=== PATIENT | female | born 1990 | race Two or more races ===

== ENCOUNTER 2017-04-13 04:10 | Inpatient (IN) | payer SELFPAY ==
[2017-04-13] VITALS (10 sets, daily range): BP systolic 92–124; BP diastolic 54–78
[~2017-04-13] VITALS: Ht 157.5 cm; Wt 71.2 kg
[2017-04-13] MEDS ORDERED: OXYTOCIN 30 UNIT/500 ML PREMIX 500 ML IV PRN ×2 (04:45→08:45)
[2017-04-13] MEDS ORDERED: TERBUTALINE 1 MG/ML VIAL. SQ PRN (04:45)
[2017-04-13] MEDS ORDERED: fentaNYL PF VIAL 100 MCG/2 ML VIAL IV PRN (04:45)
[2017-04-13] MEDS ORDERED: IBUPROFEN 600 MG TABLET. PO PRN (04:45)
[2017-04-13] MEDS ORDERED: 0.9 % SODIUM CHLORIDE 10 ML DISP.SYRIN. IV PRN ×2 (04:45→08:45)
[2017-04-13] MEDS ORDERED: LIDOCAINE 1% PF 30 ML VIAL. INJ PRN (04:45)
[2017-04-13] MEDS ORDERED: BUTORPHANOL 2 MG/ML VIAL. IV PRN (04:45)
[2017-04-13 05:02] LABS: HEMATOCRIT 36.7 % (36.0-47.0); HEMOGLOBIN 12.4 g/dL (12.0-15.5); RED BLOOD COUNT 4.34 x10^6/uL (3.50-5.40); RED CELL DISTRIBUTION WIDTH 13.5 % (11.5-14.5); WHITE BLOOD COUNT 15.3 x10^3/uL (4.0-11.0)
--- NOTE | 2017-04-13 05:40 | RAD ---
INDICATION: Patient in labor with evaluation of position requested COMPARISON: None FINDINGS: Focused ultrasound images were obtained through the uterus. Placenta is fundal and right lateral. heartbeat is 160. Amniotic fluid index 7.7 Breech presentation. Please note that this is not a complete survey. IMPRESSION: The patient is in breech presentation. Electronically signed by: Jhonny Christensen (April 13, 2017 05:39:23)
[2017-04-13] MEDS: IV RINGERS,LACTATED 1000ML 1,000 ML IV SCH ×3 (05:44→20:15)
[2017-04-13] MEDS ORDERED: DEXAMETHASONE SOD PHOS 20 MG/5 ML VIAL. ONE (06:32)
[2017-04-13] MEDS ORDERED: OXYTOCIN 10 UNIT/ML VIAL. ONE ×2 (06:32→08:02)
[2017-04-13] MEDS ORDERED: PHENYLEPHRINE in 0.9% NACL PF 1 MG/10 ML DISP.SYRIN. IV ONE (06:32)
[2017-04-13] MEDS ORDERED: fentaNYL PF VIAL 100 MCG/2 ML VIAL ONE (06:32)
[2017-04-13] MEDS ORDERED: ONDANSETRON PF 4 MG/2 ML VIAL. ONE (06:32)
[2017-04-13] MEDS ORDERED: METOCLOPRAMIDE HCL 10 MG/2 ML VIAL. ONE (06:32)
[2017-04-13] MEDS ORDERED: FAMOTIDINE 20 MG/2 ML VIAL ONE (06:32)
[2017-04-13] MEDS ORDERED: MORPHINE PF 5 MG/10 ML VIAL. ONE (06:33)
[2017-04-13] MEDS ORDERED: ePHEDrine PF IN SALINE 50 MG/5 ML DISP.SYRIN IV ONE (06:33)
--- NOTE | 2017-04-13 06:59 | PDOC1 ---
OB - History Hx of Present Care: Good Care Ultrasounds: Normal mid trimester US Obstetrical Complications: None Medical Complications: None Past Family/Social History * Past Medical, Surgical, Family and Obstetric Histories reviewed from chart. Rubella: Immune RPR/VDRL: Negative GBS Status: Negative HBsAG: Negative OB - Chief Complaint & HPI Date of Admission: Date of Admission: April 13, 2017 at 04:10 Chief Complaint/History : 2 Para: 1 EGA: 38 Reason for admission: active labor, other (breech) Indication for : malpresentation Admission Nurse Assessment Rev: Yes Problems: OB - Admission Exam Physical Exam Vitals: VS - Last 72 Hours, by Label Date Time Temp Pulse Resp B/P (MAP) Pulse Ox O2 Delivery O2 Flow Rate FiO2 04/13/17 05:02 98.0 98 20 124/78 (93) Room Air 98.0 HEENT: Normal Heart: Regular Rate Lungs: Clear Abdomen: Gravid, Non tender, Soft Extremities: Edema Reflexes: Normal Cervical Dilatation: 3cm Effacement: 75% Station: -2 Membranes: Ruptured Amniotic Fluid: Clear Heart Rate: Normal Accelerations: Accelerations Present Decelerations: No decelerations Contractions on Admission: < 5 Minutes Apart Intensity: Firm Text A: 38 wks IUP SROM Breech P: ADmit for c/s. ROBERTO TOPETE Jr, MD April 13, 2017 06:58
[2017-04-13] MEDS ORDERED: CITRIC ACID/SODIUM CITRATE 30 ML SOLUTION. ONE (07:02)
[2017-04-13] MEDS ORDERED: CITRIC ACID/SODIUM CITRATE 30 ML SOLUTION. PO ONE (07:15)
[2017-04-13] MEDS ORDERED: ceFAZolin 2GM PREMIX 2 GM/50 ML BAG IV ONE (07:30)
--- NOTE | 2017-04-13 08:36 | PDOC4 ---
OB Operative Note PRE OP DIAGNOSIS: Breech POST OP DIAGNOSIS: Breech OPERATION PERFORMED: 1 LTCS (with vertical extension toward fundus) Surgeon Dr. Roy Anesthesia: Regional (Spinal) Blood Loss 800 ml Specimen placenta and OB Findings: Position (Breech), Sex (Female), (), Weight (3010 Gram) Complications none Additional Remarks pt. ROBERTO Colin Jr, MD April 13, 2017 08:36
[2017-04-13] MEDS ORDERED: ZOLPIDEM 5 MG TABLET. PO PRN (08:45)
[2017-04-13] MEDS ORDERED: ONDANSETRON PF 4 MG/2 ML VIAL. IV PRN (08:45)
[2017-04-13] MEDS ORDERED: MAG HYDROX/ALUMINUM HYD/SIMETH 30 ML ORAL.SUSP PO PRN (08:45)
[2017-04-13] MEDS ORDERED: KETOROLAC TROMETHAMINE 30 MG/ML INJ. IV PRN (08:45)
[2017-04-13] MEDS ORDERED: diphenhydrAMINE ORAL ELIXIR 12.5 MG/5 ML ML PO PRN (08:45)
[2017-04-13] MEDS ORDERED: SIMETHICONE 80 MG TAB.CHEW PO PRN (08:45)
--- NOTE | 2017-04-13 10:07 | OP ---
DATE OF SURGERY: PREOPERATIVE DIAGNOSES: Breech presentation, active labor. POSTOPERATIVE DIAGNOSES: Breech presentation, active labor. PROCEDURE: Primary low-transverse section with vertical extension toward the fundus. SURGEON: Roberto Roy MD ANESTHESIA: Epidural. ESTIMATED BLOOD LOSS: 800 mL. COMPLICATIONS: None. FINDINGS: Viable female infant in footling breech presentation requiring section. Apgars of 1, 8, and 9, weight 3,010 grams. Three-vessel cord. Placenta delivered manually intact. SUMMARY: A 26-year-old 2, para 1 at 38 weeks, who presented in active labor. She was found to be in breech presentation. She also had spontaneous rupture of membranes with thin meconium fluid. The patient was prepped for section. DESCRIPTION OF PROCEDURE: The patient was taken to the surgery suite and placed in dorsal supine position where she was prepped with ChloraPrep and draped in the sterile fashion. After adequate anesthesia, a Pfannenstiel skin incision was made with scalpel down to and through the fascia. Fascia was extended laterally using curved Bueno scissors. The superior edge of the fascia was grasped with two Herrera clamps and dissected free of the abdominal rectus muscles using blunt dissection along with Bovie cautery. The same process took place inferiorly. The peritoneum was grasped with 2 hemostats and entered sharply with Metzenbaum scissors. This incision was extended superiorly as well as inferiorly. The Alfred ring retractor was placed. A low-transverse hysterotomy incision was made with scalpel down to the . The hysterotomy incision was extended laterally and superiorly digitally. It was found that the was footling breech at this point. An extension was made with bandage scissors to the midline of the uterus in a vertical direction. A ____ from the nursing staff was placed vaginally to push up on the leg ____ in order to flex the right leg, which was then delivered. The left leg was then flexed and delivered. With fundal pressure, the infant was delivered down to the subscapular region. The right arm was then flexed and delivered. The infant was rotated 180 degrees. The left arm was flexed and delivered, and with additional fundal pressure, the head was delivered. was suctioned with bulb syringe orally and nasally. The umbilical cord was clamped twice and cut. A viable female infant was handed to the awaiting nursing staff. Umbilical cord blood and arterial pH were obtained. The uterus was exteriorized and placenta was removed under manual extraction intact. Vertical extension was repaired in 2 layers using 1-0 Vicryl suture in a running locking fashion. The hysterotomy incision was repaired with 1-0 Vicryl suture in a running locking fashion. [id number] sutures placed in the right apex of the hysterotomy incision for better hemostasis. The uterine incision was hemostatic. Uterus palpated firm. Fallopian tubes and ovaries appeared normal bilaterally. Posterior cul-de-sac was cleared of clot and debris with moist lap. The uterus was then returned to the abdomen. The paracolic gutters were cleared of clot and debris with a moist lap. Hysterotomy incision was reviewed and was hemostatic. Interceed was placed over the hysterotomy incision in an inverted T fashion. The Alfred ring retractor was removed. The peritoneum was re-approximated using 1-0 Vicryl suture in running fashion. Fascia was re-approximated using 0 Vicryl suture in a running fashion. Skin was re-approximated using 4-0 Vicryl suture in subcuticular manner. The patient tolerated the procedure well and was taken to the recovery room in stable condition. Sponge and needle counts were correct x 3. ROBERTO ROY MD DR: MORAIMA/jose JOB#: [id number] / [id number]
[2017-04-13] MEDS: KETOROLAC TROMETHAMINE 30 MG/ML INJ. IV PRN ×2 (10:36→22:01)
[2017-04-13] MEDS: FERROUS SULFATE 325 MG TABLET. PO SCH (16:10)
[2017-04-13] MEDS: oxyCODONE/APAP 5/325 1 TAB TABLET PO PRN (18:05)
[2017-04-13] MEDS: DOCUSATE SODIUM 100 MG CAPSULE. PO PRN (22:00)
[2017-04-14 00:45] VITALS: BP 89/59
[2017-04-14] MEDS: IBUPROFEN 800 MG TABLET. PO PRN ×3 (03:08→22:41)
[2017-04-14 04:38] LABS: BASO % 0 % (0-3); EOS % 0 % (0-3); HEMATOCRIT 28.2 % (36.0-47.0); HEMOGLOBIN 9.6 g/dL (12.0-15.5); LYMPH # 2.2 x10^3/uL (1.0-4.8); LYMPH % 10 % (24-48); MEAN CORPUSCULAR HEMOGLOBIN 29 pg (25-35); MEAN CORPUSCULAR HGB CONC 34 g/dL (31-37); MEAN CORPUSCULAR VOLUME 85 fL (79-100); MONO % 7 % (0-9); NEUT % 82 % (31-73); PLATELET COUNT 230 x10^3/uL (140-400); RED BLOOD COUNT 3.31 x10^6/uL (3.50-5.40); RED CELL DISTRIBUTION WIDTH 13.9 % (11.5-14.5)
[2017-04-14 06:33] VITALS: BP 106/73
[2017-04-14] MEDS: oxyCODONE/APAP 5/325 1 TAB TABLET PO PRN ×4 (07:15→21:06)
[2017-04-14] MEDS: DOCUSATE SODIUM 100 MG CAPSULE. PO PRN ×2 (07:15→21:06)
[2017-04-14] MEDS: FERROUS SULFATE 325 MG TABLET. PO SCH ×2 (07:15→17:16)
[2017-04-14 09:09] LABS: PLT ESTIMATE ADEQUATE (ADEQUATE)
[2017-04-14 10:42] VITALS: BP 98/68
[2017-04-14 10:43] VITALS: BP_SYST 98
--- NOTE | 2017-04-14 13:11 | PDOC ---
OB Progress Note Date of Service 04/14/17 Time of Evaluation 1310 Notes Pt. feeling well. Pain controlled. Breast feeding. Lochia minimal. Lab Laboratory Tests Test 04/13/17 04:37 04/14/17 03:15 White Blood Count 15.3 x10^3/uL (4.0-11.0) 21.0 x10^3/uL (4.0-11.0) Red Blood Count 4.34 x10^6/uL (3.50-5.40) 3.31 x10^6/uL (3.50-5.40) Hemoglobin 12.4 g/dL (12.0-15.5) 9.6 g/dL (12.0-15.5) Hematocrit 36.7 % (36.0-47.0) 28.2 % (36.0-47.0) Mean Corpuscular Volume 85 fL (79-100) 85 fL (79-100) Mean Corpuscular Hemoglobin 29 pg (25-35) 29 pg (25-35) Mean Corpuscular Hemoglobin Concent 34 g/dL (31-37) 34 g/dL (31-37) Red Cell Distribution Width 13.5 % (11.5-14.5) 13.9 % (11.5-14.5) Platelet Count 279 x10^3/uL (140-400) 230 x10^3/uL (140-400) Neutrophils (%) (Auto) 82 % (31-73) Lymphocytes (%) (Auto) 10 % (24-48) Monocytes (%) (Auto) 7 % (0-9) Eosinophils (%) (Auto) 0 % (0-3) Basophils (%) (Auto) 0 % (0-3) Neutrophils # (Auto) 17.3 x10^3uL (1.8-7.7) Lymphocytes # (Auto) 2.2 x10^3/uL (1.0-4.8) Monocytes # (Auto) 1.5 x10^3/uL (0.0-1.1) Eosinophils # (Auto) 0.0 x10^3/uL (0.0-0.7) Basophils # (Auto) 0.0 x10^3/uL (0.0-0.2) Segmented Neutrophils % 84 % (35-66) Band Neutrophils % 6 % (0-9) Lymphocytes % 6 % (24-48) Monocytes % 4 % (0-10) Platelet Estimate Adequate (ADEQUATE) Laboratory Tests Test 04/14/17 03:15 White Blood Count 21.0 x10^3/uL (4.0-11.0) Red Blood Count 3.31 x10^6/uL (3.50-5.40) Hemoglobin 9.6 g/dL (12.0-15.5) Hematocrit 28.2 % (36.0-47.0) Mean Corpuscular Volume 85 fL (79-100) Mean Corpuscular Hemoglobin 29 pg (25-35) Mean Corpuscular Hemoglobin Concent 34 g/dL (31-37) Red Cell Distribution Width 13.9 % (11.5-14.5) Platelet Count 230 x10^3/uL (140-400) Neutrophils (%) (Auto) 82 % (31-73) Lymphocytes (%) (Auto) 10 % (24-48) Monocytes (%) (Auto) 7 % (0-9) Eosinophils (%) (Auto) 0 % (0-3) Basophils (%) (Auto) 0 % (0-3) Neutrophils # (Auto) 17.3 x10^3uL (1.8-7.7) Lymphocytes # (Auto) 2.2 x10^3/uL (1.0-4.8) Monocytes # (Auto) 1.5 x10^3/uL (0.0-1.1) Eosinophils # (Auto) 0.0 x10^3/uL (0.0-0.7) Basophils # (Auto) 0.0 x10^3/uL (0.0-0.2) Segmented Neutrophils % 84 % (35-66) Band Neutrophils % 6 % (0-9) Lymphocytes % 6 % (24-48) Monocytes % 4 % (0-10) Platelet Estimate Adequate (ADEQUATE) Medications Current Medications Sodium Chloride (Normal Saline Flush) 3 ml QSHIFT PRN IV AFTER MEDS AND BLOOD DRAWS; Start 04/13/17 at 04:45 Ringer's Solution 1,000 ml @ 125 mls/hr Q8H IV Last administered on 04/13/17t 20:15; Start 04/13/17 at 04:37 Butorphanol Tartrate (Stadol) 2 mg PRN Q1HR PRN IV Severe labor pain; Start at 04:45 Fentanyl Citrate (Fentanyl 2ml Vial) 100 mcg PRN Q30MIN PRN IV Severe pain; Start 04/13/17 at 04:45 Terbutaline Sulfate (Brethine) 0.25 mg 1X PRN PRN SQ SEE COMMENTS; Start at 04:45; Stop 04/14/17 at 04:44; Status DC Lidocaine HCl 30 ml 1X PRN PRN INJ SEE COMMENTS; Start 04/13/17 at 04:45; Stop 04/13/17 at 16:25; Status DC Oxytocin/Sodium Chloride 500 ml @ 0 mls/hr CONT PRN PRN IV Post delivery bleeding; Start 04/13/17 at 04:45 Ibuprofen (Motrin) 600 mg PRN Q6HRS PRN PO PAIN; Start 04/13/17 at 04:45 Dexamethasone Sodium Phosphate (Decadron) 20 mg STK-MED ONCE .ROUTE ; Start at 06:32; Stop 04/13/17 at 16:25; Status DC Famotidine (Pepcid) 20 mg STK-MED ONCE .ROUTE ; Start 04/13/17 at 06:32; Stop at 16:25; Status DC Metoclopramide HCl (Reglan) 10 mg STK-MED ONCE .ROUTE ; Start 04/13/17 at 06:32 ; Stop 04/13/17 at 16:25; Status DC Ondansetron HCl (Zofran) 4 mg STK-MED ONCE .ROUTE ; Start 04/13/17 at 06:32; Stop 04/13/17 at 16:25; Status DC Phenylephrine HCl 1 mg STK-MED ONCE IV ; Start 04/13/17 at 06:32; Stop 04/13/17 at 16:25; Status DC Fentanyl Citrate (Fentanyl 2ml Vial) 100 mcg STK-MED ONCE .ROUTE ; Start at 06:32; Stop 04/13/17 at 16:25; Status DC Oxytocin (Pitocin) 10 unit STK-MED ONCE .ROUTE ; Start 04/13/17 at 06:32; Stop 04/13/17 at 16:25; Status DC Ephedrine Sulfate 50 mg STK-MED ONCE IV ; Start 04/13/17 at 06:33; Stop at 16:25; Status DC Morphine Sulfate (Morphine Preservative Free) 5 mg STK-MED ONCE .ROUTE ; Start 04/13/17 at 06:33; Stop 04/13/17 at 16:25; Status DC Ketorolac Tromethamine (Toradol) 30 mg PRN Q6HRS PRN IV PAIN Last administered on 04/13/17 22:01; Start 04/13/17 at 07:00; Stop 04/18/17 at 06:59 Citric Acid/ Sodium Citrate (Bicitra) 30 ml STK-MED ONCE .ROUTE ; Start at 07:02; Stop 04/13/17 at 16:25; Status DC Cefazolin Sodium/ Dextrose 50 ml @ 100 mls/hr 1X ONCE IV ; Start 04/13/17 at 07:00; Stop 04/13/17 at 16:25; Status DC Citric Acid/ Sodium Citrate (Bicitra) 30 ml 1X ONCE PO Last administered on 07:13; Start 04/13/17 at 07:15; Stop 04/13/17 at 16:25; Status DC Oxytocin (Pitocin) 10 unit STK-MED ONCE .ROUTE ; Start 04/13/17 at 08:02; Stop 04/13/17 at 16:25; Status DC Sodium Chloride (Normal Saline Flush) 3 ml QSHIFT PRN IV AFTER MEDS AND BLOOD DRAWS; Start 04/13/17 at 08:45 Oxytocin/Sodium Chloride 500 ml @ 125 mls/hr CONT PRN IV EXCESSIVE POST- BLEEDING; Start 04/13/17 at 08:45; Stop 04/13/17 at 16:44; Status DC Ibuprofen (Motrin) 800 mg PRN Q8HRS PRN PO INFLAMMATION Last administered on 11:27; Start 04/13/17 at 08:45 Ondansetron HCl (Zofran) 4 mg PRN Q6HRS PRN IV NAUSEA/VOMITING; Start 04/13/17 at 08:45 Docusate Sodium (Colace) 100 mg PRN BID PRN PO CONSTIPATION Last administered on 04/14/17 07:15; Start 04/13/17 at 08:45 Al Hydroxide/Mg Hydroxide (Mylanta Plus Xs) 30 ml PRN Q4HRS PRN PO HEARTBURN / GAS; Start 04/13/17 at 08:45 Simethicone (Gas-X) 80 mg PRN AFTMEALHC PRN PO GAS / BLOATING; Start 04/13/17 at 08:45 Diphenhydramine HCl (Benadryl Oral Elixir) 12.5 mg PRN Q6HRS PRN PO ITCHING; Start 04/13/17 at 08:45 Ferrous Sulfate (Feosol) 325 mg BIDWMEALS PO Last administered on 04/14/17 07: 15; Start 04/13/17 at 17:00 Zolpidem Tartrate (Ambien) 5 mg PRN QHS PRN PO INSOMNIA, MAY REPEAT X1; Start 04/13/17 at 08:45 Oxycodone/ Acetaminophen (Percocet 5/325) 2 tab PRN Q4HRS PRN PO MODERATE PAIN , SEVERE PAIN Last administered on 04/14/17 11:29; Start 04/13/17 at 08:45 Ketorolac Tromethamine (Toradol) 30 mg PRN Q6HRS PRN IV PAIN Last administered on 04/13/17 16:00; Start 04/13/17 at 08:45; Stop 04/18/17 at 08:44 Exam Abd: soft,non tender, fundus firm INcision site: clean, dry and intact Assessment POD#1 s/p c/s Plan of Care: Continue current Tx, Mgmt ROBERTO TOPETE Jr, MD April 14, 2017 13:11
[2017-04-14 18:35] VITALS: BP 101/72
[2017-04-14 23:08] LABS: RPR REFLEX Non Reactive (Non Reactive)
[2017-04-14 23:20] VITALS: BP 105/64
[2017-04-15] MEDS: oxyCODONE/APAP 5/325 1 TAB TABLET PO PRN ×4 (01:45→21:05)
[2017-04-15 06:30] VITALS: BP 96/65
[2017-04-15] MEDS: DOCUSATE SODIUM 100 MG CAPSULE. PO PRN ×2 (08:04→21:05)
[2017-04-15] MEDS: FERROUS SULFATE 325 MG TABLET. PO SCH ×2 (08:04→15:58)
[2017-04-15] MEDS: IBUPROFEN 800 MG TABLET. PO PRN ×2 (08:04→19:32)
[2017-04-15 11:20] VITALS: BP 102/66
[2017-04-15 15:15] VITALS: BP 106/66
--- NOTE | 2017-04-15 17:28 | PDOC ---
OB Progress Note Date of Service 04/15/17 Time of Evaluation 1725 Notes Pt. feeling well. No complaints. Lab Laboratory Tests Test 04/14/17 03:15 White Blood Count 21.0 x10^3/uL (4.0-11.0) Red Blood Count 3.31 x10^6/uL (3.50-5.40) Hemoglobin 9.6 g/dL (12.0-15.5) Hematocrit 28.2 % (36.0-47.0) Mean Corpuscular Volume 85 fL (79-100) Mean Corpuscular Hemoglobin 29 pg (25-35) Mean Corpuscular Hemoglobin Concent 34 g/dL (31-37) Red Cell Distribution Width 13.9 % (11.5-14.5) Platelet Count 230 x10^3/uL (140-400) Neutrophils (%) (Auto) 82 % (31-73) Lymphocytes (%) (Auto) 10 % (24-48) Monocytes (%) (Auto) 7 % (0-9) Eosinophils (%) (Auto) 0 % (0-3) Basophils (%) (Auto) 0 % (0-3) Neutrophils # (Auto) 17.3 x10^3uL (1.8-7.7) Lymphocytes # (Auto) 2.2 x10^3/uL (1.0-4.8) Monocytes # (Auto) 1.5 x10^3/uL (0.0-1.1) Eosinophils # (Auto) 0.0 x10^3/uL (0.0-0.7) Basophils # (Auto) 0.0 x10^3/uL (0.0-0.2) Segmented Neutrophils % 84 % (35-66) Band Neutrophils % 6 % (0-9) Lymphocytes % 6 % (24-48) Monocytes % 4 % (0-10) Platelet Estimate Adequate (ADEQUATE) Medications Current Medications Sodium Chloride (Normal Saline Flush) 3 ml QSHIFT PRN IV AFTER MEDS AND BLOOD DRAWS; Start 04/13/17 at 04:45; Stop 04/14/17 at 17:14; Status DC Ringer's Solution 1,000 ml @ 125 mls/hr Q8H IV Last administered on 04/13/17t 20:15; Start 04/13/17 at 04:37; Stop 04/14/17 at 17:14; Status DC Butorphanol Tartrate (Stadol) 2 mg PRN Q1HR PRN IV Severe labor pain; Start at 04:45; Stop 04/14/17 at 17:14; Status DC Fentanyl Citrate (Fentanyl 2ml Vial) 100 mcg PRN Q30MIN PRN IV Severe pain; Start 04/13/17 at 04:45; Stop 04/14/17 at 17:14; Status DC Terbutaline Sulfate (Brethine) 0.25 mg 1X PRN PRN SQ SEE COMMENTS; Start at 04:45; Stop 04/14/17 at 04:44; Status DC Lidocaine HCl 30 ml 1X PRN PRN INJ SEE COMMENTS; Start 04/13/17 at 04:45; Stop 04/13/17 at 16:25; Status DC Oxytocin/Sodium Chloride 500 ml @ 0 mls/hr CONT PRN PRN IV Post delivery bleeding; Start 04/13/17 at 04:45; Stop 04/14/17 at 17:14; Status DC Ibuprofen (Motrin) 600 mg PRN Q6HRS PRN PO PAIN; Start 04/13/17 at 04:45; Stop 04/15/17 at 13:48; Status DC Dexamethasone Sodium Phosphate (Decadron) 20 mg STK-MED ONCE .ROUTE ; Start at 06:32; Stop 04/13/17 at 16:25; Status DC Famotidine (Pepcid) 20 mg STK-MED ONCE .ROUTE ; Start 04/13/17 at 06:32; Stop at 16:25; Status DC Metoclopramide HCl (Reglan) 10 mg STK-MED ONCE .ROUTE ; Start 04/13/17 at 06:32 ; Stop 04/13/17 at 16:25; Status DC Ondansetron HCl (Zofran) 4 mg STK-MED ONCE .ROUTE ; Start 04/13/17 at 06:32; Stop 04/13/17 at 16:25; Status DC Phenylephrine HCl 1 mg STK-MED ONCE IV ; Start 04/13/17 at 06:32; Stop 04/13/17 at 16:25; Status DC Fentanyl Citrate (Fentanyl 2ml Vial) 100 mcg STK-MED ONCE .ROUTE ; Start at 06:32; Stop 04/13/17 at 16:25; Status DC Oxytocin (Pitocin) 10 unit STK-MED ONCE .ROUTE ; Start 04/13/17 at 06:32; Stop 04/13/17 at 16:25; Status DC Ephedrine Sulfate 50 mg STK-MED ONCE IV ; Start 04/13/17 at 06:33; Stop at 16:25; Status DC Morphine Sulfate (Morphine Preservative Free) 5 mg STK-MED ONCE .ROUTE ; Start 04/13/17 at 06:33; Stop 04/13/17 at 16:25; Status DC Ketorolac Tromethamine (Toradol) 30 mg PRN Q6HRS PRN IV PAIN Last administered on 04/13/17 22:01; Start 04/13/17 at 07:00; Stop 04/14/17 at 17:14; Status DC Citric Acid/ Sodium Citrate (Bicitra) 30 ml STK-MED ONCE .ROUTE ; Start at 07:02; Stop 04/13/17 at 16:25; Status DC Cefazolin Sodium/ Dextrose 50 ml @ 100 mls/hr 1X ONCE IV ; Start 04/13/17 at 07:00; Stop 04/13/17 at 16:25; Status DC Citric Acid/ Sodium Citrate (Bicitra) 30 ml 1X ONCE PO Last administered on 07:13; Start 04/13/17 at 07:15; Stop 04/13/17 at 16:25; Status DC Oxytocin (Pitocin) 10 unit STK-MED ONCE .ROUTE ; Start 04/13/17 at 08:02; Stop 04/13/17 at 16:25; Status DC Sodium Chloride (Normal Saline Flush) 3 ml QSHIFT PRN IV AFTER MEDS AND BLOOD DRAWS; Start 04/13/17 at 08:45; Stop 04/14/17 at 17:14; Status DC Oxytocin/Sodium Chloride 500 ml @ 125 mls/hr CONT PRN IV EXCESSIVE POST- BLEEDING; Start 04/13/17 at 08:45; Stop 04/13/17 at 16:44; Status DC Ibuprofen (Motrin) 800 mg PRN Q8HRS PRN PO INFLAMMATION Last administered on 08:04; Start 04/13/17 at 08:45 Ondansetron HCl (Zofran) 4 mg PRN Q6HRS PRN IV NAUSEA/VOMITING; Start 04/13/17 at 08:45; Stop 04/14/17 at 17:14; Status DC Docusate Sodium (Colace) 100 mg PRN BID PRN PO CONSTIPATION Last administered on 04/15/17 08:04; Start 04/13/17 at 08:45 Al Hydroxide/Mg Hydroxide (Mylanta Plus Xs) 30 ml PRN Q4HRS PRN PO HEARTBURN / GAS; Start 04/13/17 at 08:45 Simethicone (Gas-X) 80 mg PRN AFTMEALHC PRN PO GAS / BLOATING Last administered on 04/14/17 17:16; Start 04/13/17 at 08:45 Diphenhydramine HCl (Benadryl Oral Elixir) 12.5 mg PRN Q6HRS PRN PO ITCHING; Start 04/13/17 at 08:45 Ferrous Sulfate (Feosol) 325 mg BIDWMEALS PO Last administered on 04/15/17 15: 58; Start 04/13/17 at 17:00 Zolpidem Tartrate (Ambien) 5 mg PRN QHS PRN PO INSOMNIA, MARCH REPEAT X1; Start 04/13/17 at 08:45 Oxycodone/ Acetaminophen (Percocet 5/325) 2 tab PRN Q4HRS PRN PO MODERATE PAIN , SEVERE PAIN Last administered on 04/15/17 15:59; Start 04/13/17 at 08:45 Ketorolac Tromethamine (Toradol) 30 mg PRN Q6HRS PRN IV PAIN Last administered on 04/13/17 16:00; Start 04/13/17 at 08:45; Stop 04/14/17 at 17:14; Status DC Cefazolin Sodium/ Dextrose (Ancef 2gm Premix) 2 gm STK-MED ONCE IV ; Start 04/13 at 07:30; Stop 04/15/17 at 07:58; Status DC Exam Abd: soft, non tender Incision site: clean, dry and intact Assessment POD#2 s/p c/s Plan of Care: Continue current Tx, Mgmt ROBERTO TOPETE Jr, MD April 15, 2017 17:28
[2017-04-15 23:02] VITALS: BP 113/71
[2017-04-16] MEDS: IBUPROFEN 800 MG TABLET. PO PRN (05:12)
[2017-04-16 05:53] VITALS: BP 125/83
--- NOTE | 2017-04-16 08:38 | PDOC ---
OB Progress Note Date of Service 04/16/17 Time of Evaluation 0835 Notes Pt. feeling well. No complaints. Medications Current Medications Sodium Chloride (Normal Saline Flush) 3 ml QSHIFT PRN IV AFTER MEDS AND BLOOD DRAWS; Start 04/13/17 at 04:45; Stop 04/14/17 at 17:14; Status DC Ringer's Solution 1,000 ml @ 125 mls/hr Q8H IV Last administered on 04/13/17t 20:15; Start 04/13/17 at 04:37; Stop 04/14/17 at 17:14; Status DC Butorphanol Tartrate (Stadol) 2 mg PRN Q1HR PRN IV Severe labor pain; Start at 04:45; Stop 04/14/17 at 17:14; Status DC Fentanyl Citrate (Fentanyl 2ml Vial) 100 mcg PRN Q30MIN PRN IV Severe pain; Start 04/13/17 at 04:45; Stop 04/14/17 at 17:14; Status DC Terbutaline Sulfate (Brethine) 0.25 mg 1X PRN PRN SQ SEE COMMENTS; Start at 04:45; Stop 04/14/17 at 04:44; Status DC Lidocaine HCl 30 ml 1X PRN PRN INJ SEE COMMENTS; Start 04/13/17 at 04:45; Stop 04/13/17 at 16:25; Status DC Oxytocin/Sodium Chloride 500 ml @ 0 mls/hr CONT PRN PRN IV Post delivery bleeding; Start 04/13/17 at 04:45; Stop 04/14/17 at 17:14; Status DC Ibuprofen (Motrin) 600 mg PRN Q6HRS PRN PO PAIN; Start 04/13/17 at 04:45; Stop 04/15/17 at 13:48; Status DC Dexamethasone Sodium Phosphate (Decadron) 20 mg STK-MED ONCE .ROUTE ; Start at 06:32; Stop 04/13/17 at 16:25; Status DC Famotidine (Pepcid) 20 mg STK-MED ONCE .ROUTE ; Start 04/13/17 at 06:32; Stop at 16:25; Status DC Metoclopramide HCl (Reglan) 10 mg STK-MED ONCE .ROUTE ; Start 04/13/17 at 06:32 ; Stop 04/13/17 at 16:25; Status DC Ondansetron HCl (Zofran) 4 mg STK-MED ONCE .ROUTE ; Start 04/13/17 at 06:32; Stop 04/13/17 at 16:25; Status DC Phenylephrine HCl 1 mg STK-MED ONCE IV ; Start 04/13/17 at 06:32; Stop 04/13/17 at 16:25; Status DC Fentanyl Citrate (Fentanyl 2ml Vial) 100 mcg STK-MED ONCE .ROUTE ; Start at 06:32; Stop 04/13/17 at 16:25; Status DC Oxytocin (Pitocin) 10 unit STK-MED ONCE .ROUTE ; Start 04/13/17 at 06:32; Stop 04/13/17 at 16:25; Status DC Ephedrine Sulfate 50 mg STK-MED ONCE IV ; Start 04/13/17 at 06:33; Stop at 16:25; Status DC Morphine Sulfate (Morphine Preservative Free) 5 mg STK-MED ONCE .ROUTE ; Start 04/13/17 at 06:33; Stop 04/13/17 at 16:25; Status DC Ketorolac Tromethamine (Toradol) 30 mg PRN Q6HRS PRN IV PAIN Last administered on 04/13/17t 22:01; Start 04/13/17 at 07:00; Stop 04/14/17 at 17:14; Status DC Citric Acid/ Sodium Citrate (Bicitra) 30 ml STK-MED ONCE .ROUTE ; Start at 07:02; Stop 04/13/17 at 16:25; Status DC Cefazolin Sodium/ Dextrose 50 ml @ 100 mls/hr 1X ONCE IV ; Start 04/13/17 at 07:00; Stop 04/13/17 at 16:25; Status DC Citric Acid/ Sodium Citrate (Bicitra) 30 ml 1X ONCE PO Last administered on t 07:13; Start 04/13/17 at 07:15; Stop 04/13/17 at 16:25; Status DC Oxytocin (Pitocin) 10 unit STK-MED ONCE .ROUTE ; Start 04/13/17 at 08:02; Stop 04/13/17 at 16:25; Status DC Sodium Chloride (Normal Saline Flush) 3 ml QSHIFT PRN IV AFTER MEDS AND BLOOD DRAWS; Start 04/13/17 at 08:45; Stop 04/14/17 at 17:14; Status DC Oxytocin/Sodium Chloride 500 ml @ 125 mls/hr CONT PRN IV EXCESSIVE POST- BLEEDING; Start 04/13/17 at 08:45; Stop 04/13/17 at 16:44; Status DC Ibuprofen (Motrin) 800 mg PRN Q8HRS PRN PO INFLAMMATION Last administered on 05:12; Start 04/13/17 at 08:45 Ondansetron HCl (Zofran) 4 mg PRN Q6HRS PRN IV NAUSEA/VOMITING; Start 04/13/17 at 08:45; Stop 04/14/17 at 17:14; Status DC Docusate Sodium (Colace) 100 mg PRN BID PRN PO CONSTIPATION Last administered on 04/15/17 21:05; Start 04/13/17 at 08:45 Al Hydroxide/Mg Hydroxide (Mylanta Plus Xs) 30 ml PRN Q4HRS PRN PO HEARTBURN / GAS; Start 04/13/17 at 08:45 Simethicone (Gas-X) 80 mg PRN AFTMEALHC PRN PO GAS / BLOATING Last administered on 04/14/17 17:16; Start 04/13/17 at 08:45 Diphenhydramine HCl (Benadryl Oral Elixir) 12.5 mg PRN Q6HRS PRN PO ITCHING; Start 04/13/17 at 08:45 Ferrous Sulfate (Feosol) 325 mg BIDWMEALS PO Last administered on 04/15/17 15: 58; Start 04/13/17 at 17:00 Zolpidem Tartrate (Ambien) 5 mg PRN QHS PRN PO INSOMNIA, MAY REPEAT X1; Start 04/13/17 at 08:45 Oxycodone/ Acetaminophen (Percocet 5/325) 2 tab PRN Q4HRS PRN PO MODERATE PAIN , SEVERE PAIN Last administered on 04/15/17 21:05; Start 04/13/17 at 08:45 Ketorolac Tromethamine (Toradol) 30 mg PRN Q6HRS PRN IV PAIN Last administered on 5/20/17at 16:00; Start 04/13/17 at 08:45; Stop 04/14/17 at 17:14; Status DC Cefazolin Sodium/ Dextrose (Ancef 2gm Premix) 2 gm STK-MED ONCE IV ; Start 04/13 at 07:30; Stop 04/15/17 at 07:58; Status DC Exam Abd: soft, non tender, fundus firm Incision site: clean, dry and intact Assessment POD#3 s/p c/s Plan of Care: See new orders (D/c home.) ROBERTO TOPETE Jr, MD April 16, 2017 08:38
--- NOTE | 2017-04-16 08:39 | DISCH ---
DISCHARGE INSTRUCTIONS Condition on Discharge Condition on Discharge: Stable Activity After Discharge Activity Instructions for Disc: Activity as tolerated Lifting Instructions after Dis: No heavy lifting Driving Instructions after Dis: Do not drive today Diet after Discharge Diet after Discharge: Regular Contacting the DRKatheryn after DC Call your doctor for: Concerns you may have Follow-Up Follow up with: Viri in 2 weeks. ROBERTO TOPETE Jr, MD April 16, 2017 08:39
[2017-04-16] MEDS ORDERED: DOCU-27 PO (08:40)
[2017-04-16] MEDS ORDERED: IBUP-1060 PO (08:40)
[2017-04-16] MEDS ORDERED: OXYC-323 PO (08:40)
[2017-04-16] MEDS: FERROUS SULFATE 325 MG TABLET. PO SCH (08:56)
[2017-04-16] MEDS: DOCUSATE SODIUM 100 MG CAPSULE. PO PRN (08:56)
[2017-04-16] MEDS: oxyCODONE/APAP 5/325 1 TAB TABLET PO PRN (08:57)
[2017-04-16] MEDS ORDERED: BISACODYL 10 MG SUPP.RECT. PR ONE (09:30)
[2017-04-16 12:00] VITALS: BP 109/77
== END 2017-04-16 13:00 | disposition home or self-care (01) | DRG 765 ==
LOC: OBSVTOIN 04:10 → 3 SO LND 04:10 → 3 NORTH 11:01
PROVIDERS: ADMIT Obstetrics & Gynecology; ATTEND Obstetrics & Gynecology
PROC: 10D00Z1 Extraction of Products of Conception, Low, Open Approach (ICD-10-PCS; principal; 2017-04-13)
DX: O32.8XX0 Maternal care for other malpresentation of fetus, not applicable or unspecified (principal); D62 Acute posthemorrhagic anemia; O77.0 Labor and delivery complicated by meconium in amniotic fluid; Z37.0 Single live birth; Z3A.38 38 weeks gestation of pregnancy; O99.02 Anemia complicating childbirth
CPT/HCPCS: 36415; 76815; 85007; 85027; 86593; 86850; 86900; 86901; G0378; J0690; J1100; J1885; J2270; J2370; J2405; J2590; J2765; J3010; J7120; S0028

== ENCOUNTER 2019-09-07 20:57 | Inpatient (IN) | payer SELFPAY ==
[~2019-09-07] VITALS: Ht 160 cm; Wt 60.4 kg
[~2019-09-07 20:57] MED LIST: DOCU-109 PO; IBUP-1060 PO; OXYC1TAB15 PO
[2019-09-07] MEDS ORDERED: fentaNYL PF VIAL 100 MCG/2 ML VIAL IV PRN (21:45)
--- NOTE | 2019-09-07 21:49 | PHYS DOC ---
Past Medical History Past Medical History: No Pertinent History Past Surgical History: Appendectomy Alcohol Use: Occasionally Drug Use: None Adult General Chief Complaint Chief Complaint: BREAST PROBLEM HPI HPI Patient is a 29-year-old female who presents with report of pain, swelling and redness to her left breast for the last few days. She indicates that pain and swelling have progressively gotten worse and currently she rates pain at an 8 out of 10. She does not believe that she's been running a fever. She denies any nausea or vomiting. Patient states that pain is worsened with palpation to the breast.[] Review of Systems Review of Systems Constitutional: Denies fever or chills [] Respiratory: Denies cough or shortness of breath [] Cardiovascular: No additional information not addressed in HPI [] GI: Denies abdominal pain, nausea, vomiting or diarrhea [] Integument: Positive redness, swelling and warmth with tenderness to the left breast extending from areola, laterally[] Neurologic: Denies headache, focal weakness or sensory changes [] All other systems were reviewed and found to be within normal limits, except as documented in this note. Current Medications Current Medications Current Medications Medications (Trade) Dose Ordered Sig/Seven Start Time Stop Time Status Last Admin Dose Admin Cefazolin Sodium/ Dextrose 50 ml @ 100 mls/hr 1X ONCE 09/07/19 22:30 09/07/19 22:59 DC 09/07/19 22:47 100 MLS/HR Fentanyl Citrate (Fentanyl 2ml Vial) 25 mcg PRN Q15MIN PRN 09/07/19 21:45 09/08/19 21:44 09/07/19 22:48 25 MCG Hydromorphone HCl (Dilaudid) 0.5 mg 1X ONCE 09/08/19 00:30 09/08/19 00:31 Ondansetron HCl (Zofran) 4 mg 1X ONCE 09/07/19 22:00 09/07/19 22:01 DC 09/07/19 22:48 4 MG Sodium Chloride 1,000 ml @ 1,000 mls/hr Q1H 09/07/19 22:00 09/07/19 22:59 DC 09/07/19 22:46 1,000 MLS/HR Allergies Allergies Allergies Coded Allergies Type Severity Reaction Last Updated Verified No Known Drug Allergies 10/04/14 No Physical Exam Physical Exam Constitutional: Well developed, well nourished, no acute distress, non-toxic appearance. [] HENT: Normocephalic, atraumatic, bilateral external ears normal, oropharynx moist, no oral exudates, nose normal. [] Eyes: PERRLA, EOMI, conjunctiva normal, no discharge. [] Neck: Normal range of motion, no tenderness, supple, no stridor. [] Cardiovascular: Tachycardic rate with regular rhythm[] Lungs & Thorax: Bilateral breath sounds clear to auscultation [] Abdomen: Bowel sounds normal, soft, no tenderness. [] Skin: Examination of left breast performed with nurse poultry farmer meat present. There is moderate soft tissue swelling with erythema and warmth, primarily overlying the areola but extending laterally. [] Extremities: No tenderness, no cyanosis, no clubbing, ROM intact, no edema. [] Neurologic: Alert and oriented X 3, no focal deficits noted. [] Current Patient Data Vital Signs Vital Signs Date Time Temp Pulse Resp B/P (MAP) Pulse Ox O2 Delivery O2 Flow Rate FiO2 09/07/19 22:48 16 100 Room Air 09/07/19 21:25 98.7 107 146/71 (96) 98.7 Lab Values Laboratory Tests Test 09/07/19 22:20 09/07/19 23:22 09/07/19 23:25 White Blood Count 12.7 x10^3/uL (4.0-11.0) H Red Blood Count 4.70 x10^6/uL (3.50-5.40) Hemoglobin 14.1 g/dL (12.0-15.5) Hematocrit 41.6 % (36.0-47.0) Mean Corpuscular Volume 88 fL (79-100) Mean Corpuscular Hemoglobin 30 pg (25-35) Mean Corpuscular Hemoglobin Concent 34 g/dL (31-37) Red Cell Distribution Width 12.8 % (11.5-14.5) Platelet Count 251 x10^3/uL (140-400) Neutrophils (%) (Auto) 73 % (31-73) Lymphocytes (%) (Auto) 19 % (24-48) L Monocytes (%) (Auto) 7 % (0-9) Eosinophils (%) (Auto) 0 % (0-3) Basophils (%) (Auto) 0 % (0-3) Neutrophils # (Auto) 9.3 x10^3/uL (1.8-7.7) H Lymphocytes # (Auto) 2.4 x10^3/uL (1.0-4.8) Monocytes # (Auto) 0.9 x10^3/uL (0.0-1.1) Eosinophils # (Auto) 0.1 x10^3/uL (0.0-0.7) Basophils # (Auto) 0.0 x10^3/uL (0.0-0.2) Sodium Level 142 mmol/L (136-145) Potassium Level 3.5 mmol/L (3.5-5.1) Chloride Level 105 mmol/L (98-107) Carbon Dioxide Level 26 mmol/L (21-32) Anion Gap 11 (6-14) Blood Urea Nitrogen 7 mg/dL (7-20) Creatinine 0.7 mg/dL (0.6-1.0) Estimated GFR (Cockcroft-Gault) 99.6 BUN/Creatinine Ratio 10 (6-20) Glucose Level 91 mg/dL (70-99) Calcium Level 9.5 mg/dL (8.5-10.1) Total Bilirubin 0.7 mg/dL (0.2-1.0) Aspartate Amino Transferase (AST) 33 U/L (15-37) Alanine Aminotransferase (ALT) 51 U/L (14-59) Alkaline Phosphatase 59 U/L (46-116) Total Protein 7.8 g/dL (6.4-8.2) Albumin 4.2 g/dL (3.4-5.0) Albumin/Globulin Ratio 1.2 (1.0-1.7) Urine Collection Type Unknown Urine Color Yellow Urine Clarity Clear Urine pH 6.5 Urine Specific [place] 1.020 Urine Protein Negative mg/dL (NEG-TRACE) Urine Glucose (UA) Negative mg/dL (NEG) Urine Ketones (Stick) 15 mg/dL (NEG) Urine Blood Moderate (NEG) Urine Nitrite Negative (NEG) Urine Bilirubin Negative (NEG) Urine Urobilinogen Dipstick 1.0 mg/dL (0.2 mg/dL) Urine Leukocyte Esterase Moderate (NEG) Urine RBC 3-5 /HPF (0-2) Urine WBC 11-20 /HPF (0-4) Urine Squamous Epithelial Cells Mod /LPF Urine Bacteria Moderate /HPF (0-FEW) Urine Mucus Mod /LPF POC Urine HCG, Qualitative Hcg negative (Negative) Laboratory Tests 09/07/19 22:20 Laboratory Tests 09/07/19 22:20 EKG EKG [] Radiology/Procedures Radiology/Procedures [] Impressions: REASON: poss abscess, LT BREAST PAIN AND SWELLING X 2 DAYS PROCEDURE: BREAST LEFT Left breast ultrasound HISTORY: 29-year-old female with left outer breast pain and swelling possible abscess. Patient is not breast-feeding. Comparisons: None available at time of exam. FINDINGS: Images are provided at the left upper, outer and lower breast at the 12:00 through 6:00 positions demonstrating dense glandular tissue typical for age, there is no discrete mass, edema or fluid collection evident. No hypervascularity or abnormal shadowing to suggest an infiltrative process. No enlarged axillary lymph nodes evident. No skin thickening or edema evident. IMPRESSION: Normal limited left breast ultrasound. No breast mass, edema or fluid collection documented. No axillary adenopathy. The patient's breast symptoms should be managed clinically. If the patient's symptoms persist on follow-up further assessment would be recommended, including but not limited to mammography, MRi and/or breast surgical consultation, given that sonography has limited sensitivity for detecting early preinvasive malignancies as well as some nonmasslike invasive malignancies. BI-RADS Category 1: Negative Electronically signed by: Terry Valentine MD (09/07/2019 10:21 PM) [facility] Course & Med Decision Making Course & Med Decision Making Pertinent Labs and Imaging studies reviewed. (See chart for details) [] Dragon Disclaimer Dragon Disclaimer This electronic medical record was generated, in whole or in part, using a voice recognition dictation system. Departure Departure Impression: Primary Impression: Cellulitis of left breast Disposition: ADMITTED INPATIENT Admitting Physician: ZAC (Dr. Brush) Condition: IMPROVED Referrals: NO PCP (PCP) AHMET HILLS Jr. DO Sep 07, 2019 21:49
[2019-09-07] MEDS ORDERED: ONDANSETRON PF 4 MG/2 ML VIAL. IV ONE (22:00)
[2019-09-07] MEDS ORDERED: IV NORMAL SALINE 1000ML BAG 1,000 ML IV SCH (22:00)
--- NOTE | 2019-09-07 22:24 | RAD ---
Left breast ultrasound HISTORY: 29-year-old female with left outer breast pain and swelling possible abscess. Patient is not breast-feeding. Comparisons: None available at time of exam. FINDINGS: Images are provided at the left upper, outer and lower breast at the 12:00 through 6:00 positions demonstrating dense glandular tissue typical for age, there is no discrete mass, edema or fluid collection evident. No hypervascularity or abnormal shadowing to suggest an infiltrative process. No enlarged axillary lymph nodes evident. No skin thickening or edema evident. IMPRESSION: Normal limited left breast ultrasound. No breast mass, edema or fluid collection documented. No axillary adenopathy. The patient's breast symptoms should be managed clinically. If the patient's symptoms persist on follow-up further assessment would be recommended, including but not limited to mammography, MRi and/or breast surgical consultation, given that sonography has limited sensitivity for detecting early preinvasive malignancies as well as some nonmasslike invasive malignancies. BI-RADS Category 1: Negative Electronically signed by: Terry Valentine MD (09/07/2019 10:21 PM) [facility]
[2019-09-07 22:27] LABS: BASO % 0 % (0-3); EOS # 0.1 x10^3/uL (0.0-0.7); EOS % 0 % (0-3); HEMATOCRIT 41.6 % (36.0-47.0); HEMOGLOBIN 14.1 g/dL (12.0-15.5); LYMPH # 2.4 x10^3/uL (1.0-4.8); LYMPH % 19 % (24-48); MEAN CORPUSCULAR HEMOGLOBIN 30 pg (25-35); MEAN CORPUSCULAR HGB CONC 34 g/dL (31-37); MEAN CORPUSCULAR VOLUME 88 fL (79-100); MONO # 0.9 x10^3/uL (0.0-1.1); MONO % 7 % (0-9); NEUT # 9.3 x10^3/uL (1.8-7.7); NEUT % 73 % (31-73); PLATELET COUNT 251 x10^3/uL (140-400); RED CELL DISTRIBUTION WIDTH 12.8 % (11.5-14.5); WHITE BLOOD COUNT 12.7 x10^3/uL (4.0-11.0)
[2019-09-07 22:44] LABS: CALCIUM 9.5 mg/dL (8.5-10.1); CREATININE 0.7 mg/dL (0.6-1.0); GFR 99.6; POTASSIUM 3.5 mmol/L (3.5-5.1)
[2019-09-07 22:51] LABS: ALBUMIN 4.2 g/dL (3.4-5.0); ALBUMIN/GLOBULIN RATIO 1.2 (1.0-1.7); TOTAL BILIRUBIN 0.7 mg/dL (0.2-1.0); TOTAL PROTEIN 7.8 g/dL (6.4-8.2)
[2019-09-07 23:30] LABS: BILIRUBIN,URINE NEGATIVE (NEG); CLARITY,URINE CLEAR; COLOR,URINE YELLOW; NITRITE,URINE NEGATIVE (NEG); PH,URINE 6.5; PROTEIN,URINE NEGATIVE (NEG-TRACE)
[2019-09-07 23:36] LABS: BACTERIA,URINE MODERATE /HPF (0-FEW); SQUAMOUS EPITHELIAL CELL,UR MOD /LPF
[2019-09-08] VITALS (8 sets, daily range): BP systolic 94–111; BP diastolic 38–79
[2019-09-08] MEDS ORDERED: ONDANSETRON PF 4 MG/2 ML VIAL. IV PRN (00:15)
[2019-09-08] MEDS ORDERED: HYDROmorphone 2 MG/ML VIAL IV ONE (00:30)
[2019-09-08] MEDS: MORPHINE SULFATE 4 MG/ML VIAL. IV PRN ×3 (01:25→09:55)
--- NOTE | 2019-09-08 02:10 | NUR ---
ADMIT NOTE The patient, BRYSON AMBROSIO, 29 y/o, F admitted by ALMA WIGGINS III, DO, was given written information regarding hospital policies, unit procedures and contact persons. Patient orientated to room, admission assessment complete, admit packet reviewed and plan of care discussed. Patient tachycardic with all other vitals stable upon admission. Patient sepsis screen positive on admission to unit, MD and ICU, RN paged. Patient's allergies verified and all personal belongings left in room with patient. Patient resting in bed, call light within reach and family at bedside, will continue to monitor.
[2019-09-08] MEDS ORDERED: PIP/TAZO PER PHARMACY MC PRN (02:45)
[2019-09-08] MEDS: IV NORMAL SALINE 1000ML BAG 1,000 ML IV SCH ×2 (02:57→16:05)
[2019-09-08] MEDS: PIPERACILLIN/TAZOBACTAM 3.375 GM in IV NORMAL SALINE 50ML 50 ML IV SCH ×3 (02:57→15:57)
--- NOTE | 2019-09-08 08:39 | PDOC1 ---
History and Physical Date of Admission Date of Admission DATE: 09/08/19 TIME: 08:38 Identification/Chief Complaint Chief Complaint Left breast pain Source Source: Patient History of Present Illness History of Present Illness Ms Mazariegos is a 29-year-old female who presents with report of pain, swelling and redness to her left breast for the last 2 days. She indicates that pain and swelling have progressively gotten worse and currently she rates pain at an 8 out of 10. Afebrile. She denies any nausea or vomiting. Patient states that pain is worsened with palpation to the breast. No abscess on ultrasound. Did have l eukocytosis. empirically given ancef and zosyn in ED. Due to pain complaints requiring IV medication she was admitted. Today she is still c/o 6/10 pain and now has some pain in her right breast. She just finished her menstrual period yesterday, has a child under 2. She did not breastfeed. No breast discharge. No recent sick contacts. no other health issues. She is somewhat anxious to go home. Past Medical History Past Medical History No significant PMHX Past Surgical History Past Surgical History: No pertinent history Family History Family History: High Cholestrol, Hypertension Social History Smoke: No ALCOHOL: none Drugs: None Current Problem List Problem List Problems Medical Problems: (1) Cellulitis of left breast Status: Acute Current Medications Current Medications Current Medications Fentanyl Citrate (Fentanyl 2ml Vial) 25 mcg PRN Q15MIN PRN IV PAIN GREATER THAN 3/10 Last administered on 09/07/19at 22:48; Start 09/07/19 at 21:45; Stop 09/08/19 at 21:44 Sodium Chloride 1,000 ml @ 1,000 mls/hr Q1H IV Last administered on 09/07/19at 22:46; Start 09/07/19 at 22:00; Stop 09/07/19 at 22:59; Status DC Ondansetron HCl (Zofran) 4 mg 1X ONCE IV Last administered on 09/07/19at 22:48; Start 09/07/19 at 22:00; Stop 09/07/19 at 22:01; Status DC Cefazolin Sodium/ Dextrose 50 ml @ 100 mls/hr 1X ONCE IV Last administered on 09/07/19at 22:47; Start 09/07/19 at 22:30; Stop 09/07/19 at 22:59; Status DC Hydromorphone HCl (Dilaudid) 0.5 mg 1X ONCE IV Last administered on 09/08/19at 00:14; Start 09/08/19 at 00:30; Stop 09/08/19 at 00:31; Status DC Ondansetron HCl (Zofran) 4 mg PRN Q8HRS PRN IV NAUSEA/VOMITING 1ST CHOICE; Start 09/08/19 at 00:15; Stop 09/09/19 at 00:14 Morphine Sulfate (Morphine Sulfate) 4 mg PRN Q2HR PRN IV SEVERE PAIN 7-10 Last administered on 09/08/19at 06:18; Start 09/08/19 at 00:15; Stop 09/09/19 at 00:14 Influenza Virus Vaccine Quadrival (Afluria Quad 2019-20 (3yr Up) Syringe) 0.5 ml ONCE ONCE VAX IM Last administered on 09/08/19at 08:22; Start 09/08/19 at 09:00; Stop 09/08/19 at 09:01 Sodium Chloride 1,000 ml @ 75 mls/hr [id number] IV Last administered on 09/08/19at 02:57; Start 09/08/19 at 02:45 Piperacillin Sod/ Tazobactam Sod (Zosyn Per Pharmacy) 1 each PRN DAILY PRN MC SEE COMMENTS; Start 09/08/19 at 02:45 Piperacillin Sod/ Tazobactam Sod 3.375 gm/Sodium Chloride 50 ml @ 100 mls/hr Q6HRS IV Last administered on 09/08/19at 06:18; Start 09/08/19 at 03:00 Active Scripts Active Percocet 5-325 Mg Tablet (Oxycodone/Acetaminophen) 1 Each Tablet 1-2 Tab PO Q4- 6HRS Colace (Docusate Sodium) 100 Mg Capsule 1 Cap PO BID Ibuprofen 800 Mg Tablet 800 Mg PO PRN Q6HRS PRN Allergies Allergies: Coded Allergies: No Known Drug Allergies (Unverified , 10/04/14) ROS General: YES: Fatigue, Malaise; No: Chills, Night Sweats, Appetite, Other PSYCHOLOGICAL ROS: No: Anxiety, Behavioral Disorder, Concentration difficultie, Decreased libido, Depression, Disorientation, Hallucinations, Hostility, Irritablity, Memory difficulties, Mood Swings, Obsessive thoughts, Physical abuse, Sexual abuse, Sleep disturbances, Suicidal ideation, Other Eyes: No Blurry vision, No Decreased vision, No Double vision, No Dry eyes, No Excessive tearing, No Eye Pain, No Itchy Eyes, No Loss of vision, No Photophobia, No Scotomata, No Uses contacts, No Uses glasses, No Other HEENT: No: Heacaches, Visual Changes, Hearing change, Nasal congestion, Nasal discharge, Oral lesions, Sinus pain, Sore Throat, Epistaxis, Sneezing, Snoring, Tinnitus, Vertigo, Vocal changes, Other ALLERGY AND IMMUNOLOGY: No: Hives, Insect Bite Sensitivity, Itchy/Watery Eyes, Nasal Congestion, Post Nasal Drip, Seasonal Allergies, Other Hematological and Lymphatic: No: Bleeding Problems, Blood Clots, Blood Transfusions, Brusing, Night Sweats, Pallor, Swollen Lymph Nodes, Other ENDOCRINE: YES: Breast Changes; No: Galactorrhea, Hair Pattern Changes, Hot Flashes, Malaise/lethargy, Mood Swings, Palpitations, Polydipsia/polyuria, Skin Changes, Temperature Intolerance, Unexpected Weight Changes, Other Breast: No New/Changing Breast Lumps, No Nipple changes, No Nipple discharge, No Other Respiratory: No: Cough, Hemoptysis, Orthopnea, Pleuritic Pain, Shortness of breath, SOB with excertion, Sputum Changes, Stridor, Tachypnea, Wheezing, Other Cardiovascular: No Chest Pain, No Palpitations, No Orthopnea, No Paroxysmal Noc. Dyspnea, No Edema, No Lt Headedness, No Other Gastrointestinal: No Nausea, No Vomiting, No Abdominal Pain, No Diarrhea, No Constipation, No Melena, No Hematochezia, No Other Genitourinary: No Dysuria, No Frequency, No Incontinence, No Hematuria, No Retention, No Discharge, No Urgency, No Pain, No Flank Pain, No Other, No , No , No , No , No , No , No Musculoskeletal: No Gait Disturbance, No Joint Pain, No Joint Stiffness, No Joint Swelling, No Muscle Pain, No Muscular Weakness, No Pain In:, No Swelling In:, No Other Neurological: No Behavorial Changes, No Bowel/Bladder ControlChng, No Confusion, No Dizziness, No Gait Disturbance, No Headaches, No Impaired Coord/balance, No Memory Loss, No Numbness/Tingling, No Seizures, No Speech Problems, No Tremors, No Visual Changes, No Weakness, No Other Skin: No Dry Skin, No Eczema, No Hair Changes, No Lumps, No Mole Changes, No Mottling, No Nail Changes, No Pruritus, No Rash, No Skin Lesion Changes, No Other, No Acne Physical Exam General: Alert, Oriented X3, Cooperative, No acute distress HEENT: Atraumatic, PERRLA, EOMI, Mucous membr. moist/pink Lungs: Clear to auscultation, Normal air movement Heart: S1S2, RRR Breasts: No axillary nodes (Left breast with redness and induration in 3 o'clock to 6 o'clock with tenderness), Rt breast nml w/o mass, Nipples normal Abdomen: Normal bowel sounds, Soft, No tenderness, No hepatosplenomegaly, No masses Rectal Exam: not examined Extremities: No clubbing, No cyanosis, No edema, Normal pulses, No tenderness/swelling Skin: No rashes, No breakdown, No significant lesion Neuro: Normal gait, Normal speech, Strength at 5/5 X4 ext, Normal tone, Sensation intact, Cranial nerves 3-12 NL, Reflexes 2+ Psych/Mental Status: Mental status NL, Mood NL Vitals Vitals Vital Signs Date Time Temp Pulse Resp B/P (MAP) Pulse Ox O2 Delivery O2 Flow Rate FiO2 09/08/19 07:23 16 Room Air 09/08/19 07:00 98.4 96 111/70 (84) 97 98.4 Labs Labs Laboratory Tests Test 09/07/19 22:20 09/07/19 23:22 09/07/19 23:25 White Blood Count 12.7 x10^3/uL (4.0-11.0) Red Blood Count 4.70 x10^6/uL (3.50-5.40) Hemoglobin 14.1 g/dL (12.0-15.5) Hematocrit 41.6 % (36.0-47.0) Mean Corpuscular Volume 88 fL (79-100) Mean Corpuscular Hemoglobin 30 pg (25-35) Mean Corpuscular Hemoglobin Concent 34 g/dL (31-37) Red Cell Distribution Width 12.8 % (11.5-14.5) Platelet Count 251 x10^3/uL (140-400) Neutrophils (%) (Auto) 73 % (31-73) Lymphocytes (%) (Auto) 19 % (24-48) Monocytes (%) (Auto) 7 % (0-9) Eosinophils (%) (Auto) 0 % (0-3) Basophils (%) (Auto) 0 % (0-3) Neutrophils # (Auto) 9.3 x10^3/uL (1.8-7.7) Lymphocytes # (Auto) 2.4 x10^3/uL (1.0-4.8) Monocytes # (Auto) 0.9 x10^3/uL (0.0-1.1) Eosinophils # (Auto) 0.1 x10^3/uL (0.0-0.7) Basophils # (Auto) 0.0 x10^3/uL (0.0-0.2) Sodium Level 142 mmol/L (136-145) Potassium Level 3.5 mmol/L (3.5-5.1) Chloride Level 105 mmol/L (98-107) Carbon Dioxide Level 26 mmol/L (21-32) Anion Gap 11 (6-14) Blood Urea Nitrogen 7 mg/dL (7-20) Creatinine 0.7 mg/dL (0.6-1.0) Estimated GFR (Cockcroft-Gault) 99.6 BUN/Creatinine Ratio 10 (6-20) Glucose Level 91 mg/dL (70-99) Calcium Level 9.5 mg/dL (8.5-10.1) Total Bilirubin 0.7 mg/dL (0.2-1.0) Aspartate Amino Transf (AST/SGOT) 33 U/L (15-37) Alanine Aminotransferase (ALT/SGPT) 51 U/L (14-59) Alkaline Phosphatase 59 U/L (46-116) Total Protein 7.8 g/dL (6.4-8.2) Albumin 4.2 g/dL (3.4-5.0) Albumin/Globulin Ratio 1.2 (1.0-1.7) Urine Collection Type Unknown Urine Color Yellow Urine Clarity Clear Urine pH 6.5 Urine Specific [place] 1.020 Urine Protein Negative mg/dL (NEG-TRACE) Urine Glucose (UA) Negative mg/dL (NEG) Urine Ketones (Stick) 15 mg/dL (NEG) Urine Blood Moderate (NEG) Urine Nitrite Negative (NEG) Urine Bilirubin Negative (NEG) Urine Urobilinogen Dipstick 1.0 mg/dL (0.2 mg/dL) Urine Leukocyte Esterase Moderate (NEG) Urine RBC 3-5 /HPF (0-2) Urine WBC 11-20 /HPF (0-4) Urine Squamous Epithelial Cells Mod /LPF Urine Bacteria Moderate /HPF (0-FEW) Urine Mucus Mod /LPF Bedside Urine HCG, Qualitative Hcg negative (Negative) Laboratory Tests Test 09/07/19 22:20 09/07/19 23:22 09/07/19 23:25 White Blood Count 12.7 x10^3/uL (4.0-11.0) Red Blood Count 4.70 x10^6/uL (3.50-5.40) Hemoglobin 14.1 g/dL (12.0-15.5) Hematocrit 41.6 % (36.0-47.0) Mean Corpuscular Volume 88 fL (79-100) Mean Corpuscular Hemoglobin 30 pg (25-35) Mean Corpuscular Hemoglobin Concent 34 g/dL (31-37) Red Cell Distribution Width 12.8 % (11.5-14.5) Platelet Count 251 x10^3/uL (140-400) Neutrophils (%) (Auto) 73 % (31-73) Lymphocytes (%) (Auto) 19 % (24-48) Monocytes (%) (Auto) 7 % (0-9) Eosinophils (%) (Auto) 0 % (0-3) Basophils (%) (Auto) 0 % (0-3) Neutrophils # (Auto) 9.3 x10^3/uL (1.8-7.7) Lymphocytes # (Auto) 2.4 x10^3/uL (1.0-4.8) Monocytes # (Auto) 0.9 x10^3/uL (0.0-1.1) Eosinophils # (Auto) 0.1 x10^3/uL (0.0-0.7) Basophils # (Auto) 0.0 x10^3/uL (0.0-0.2) Sodium Level 142 mmol/L (136-145) Potassium Level 3.5 mmol/L (3.5-5.1) Chloride Level 105 mmol/L (98-107) Carbon Dioxide Level 26 mmol/L (21-32) Anion Gap 11 (6-14) Blood Urea Nitrogen 7 mg/dL (7-20) Creatinine 0.7 mg/dL (0.6-1.0) Estimated GFR (Cockcroft-Gault) 99.6 BUN/Creatinine Ratio 10 (6-20) Glucose Level 91 mg/dL (70-99) Calcium Level 9.5 mg/dL (8.5-10.1) Total Bilirubin 0.7 mg/dL (0.2-1.0) Aspartate Amino Transf (AST/SGOT) 33 U/L (15-37) Alanine Aminotransferase (ALT/SGPT) 51 U/L (14-59) Alkaline Phosphatase 59 U/L (46-116) Total Protein 7.8 g/dL (6.4-8.2) Albumin 4.2 g/dL (3.4-5.0) Albumin/Globulin Ratio 1.2 (1.0-1.7) Urine Collection Type Unknown Urine Color Yellow Urine Clarity Clear Urine pH 6.5 Urine Specific [place] 1.020 Urine Protein Negative mg/dL (NEG-TRACE) Urine Glucose (UA) Negative mg/dL (NEG) Urine Ketones (Stick) 15 mg/dL (NEG) Urine Blood Moderate (NEG) Urine Nitrite Negative (NEG) Urine Bilirubin Negative (NEG) Urine Urobilinogen Dipstick 1.0 mg/dL (0.2 mg/dL) Urine Leukocyte Esterase Moderate (NEG) Urine RBC 3-5 /HPF (0-2) Urine WBC 11-20 /HPF (0-4) Urine Squamous Epithelial Cells Mod /LPF Urine Bacteria Moderate /HPF (0-FEW) Urine Mucus Mod /LPF Bedside Urine HCG, Qualitative Hcg negative (Negative) Images Images Normal limited left breast ultrasound. No breast mass, edema or fluid collection documented. No axillary adenopathy. The patient's breast symptoms should be managed clinically. If the patient's symptoms persist on follow-up further assessment would be recommended, including but not limited to mammography, MRi and/or breast surgical consultation, given that sonography has limited sensitivity for detecting early preinvasive malignancies as well as some nonmasslike invasive malignancies. VTE Prophylaxis Ordered VTE Prophylaxis Devices: No VTE Pharmacological Prophylaxi: No Assessment/Plan Assessment/Plan A/P: Left breast pain - admitted for pain control with IV medications Left breast cellulitis - given zosyn and ancef, already improving somewhat. Will apply heating back, IV toradol. Ok for ibuprofen. Will change to PO antibiotics doxycycline and augmentin as she wishes for discharge and she already has improvement. FEN - General diet PPX - ambulatory, low DVT risk FULL CODE Dispo - likely able to d/c later today on PO antibiotics and pain medications JORDAN SIDDIQUI MD Sep 08, 2019 08:39
[2019-09-08] MEDS ORDERED: KETOROLAC 30 MG/ML VIAL. IVP PRN (08:45)
[2019-09-08] MEDS ORDERED: FLU VAX QS 2019-20 (36MOS+)/PF 0.5 ML SYRINGE. VAX IM ONE (09:00)
[2019-09-08] MEDS ORDERED: CEPHALEXIN 250 MG CAPSULE. PO SCH (10:15)
[2019-09-08] MEDS ORDERED: CEPH250C PO (10:21)
[2019-09-08] MEDS ORDERED: HYDR-2761 PO (10:21)
[2019-09-08] MEDS ORDERED: DOXY100T PO (10:21)
[2019-09-08] MEDS: HYDROcodone/APAP 5/325MG 1 TAB TABLET PO PRN ×2 (15:03→22:04)
[2019-09-08] MEDS: DOXYCYCLINE HYCLATE 100 MG TABLET PO SCH ×2 (15:03→22:01)
--- NOTE | 2019-09-08 15:07 | NUR ---
SS following for discharge planning. SS reviewed pt chart. Pt is self pay pt. Per [facility], pt is not a citizen. Pt is from home and is currently on room air. Discharge order on the chart for home with self care.
[2019-09-08] MEDS ORDERED: ZOLPIDEM 5 MG TABLET. PO PRN (15:45)
[2019-09-08] MEDS ORDERED: MORPHINE SULFATE 4 MG/ML VIAL. IV PRN (15:45)
[2019-09-08] MEDS ORDERED: LORazepam 0.5 MG TABLET PO PRN (15:45)
[2019-09-08] MEDS ORDERED: PROCHLORPERAZINE 10 MG/2 ML VIAL. IM PRN (18:00)
[2019-09-08] MEDS: LACTOBACILLUS RHAMNOSUS GG 1 CAPSULE. PO SCH (22:01)
[2019-09-09] MEDS: PIPERACILLIN/TAZOBACTAM 3.375 GM in IV NORMAL SALINE 50ML 50 ML IV SCH ×3 (00:53→11:48)
[2019-09-09 03:06] VITALS: BP 108/66
[2019-09-09 04:36] LABS: BASO % 0 % (0-3); EOS # 0.2 x10^3/uL (0.0-0.7); EOS % 2 % (0-3); HEMATOCRIT 35.5 % (36.0-47.0); LYMPH % 35 % (24-48); MEAN CORPUSCULAR HEMOGLOBIN 30 pg (25-35); MEAN CORPUSCULAR HGB CONC 34 g/dL (31-37); MEAN CORPUSCULAR VOLUME 90 fL (79-100); MONO # 0.7 x10^3/uL (0.0-1.1); MONO % 8 % (0-9); NEUT # 4.7 x10^3/uL (1.8-7.7); NEUT % 54 % (31-73); PLATELET COUNT 227 x10^3/uL (140-400); RED BLOOD COUNT 3.97 x10^6/uL (3.50-5.40); RED CELL DISTRIBUTION WIDTH 13.1 % (11.5-14.5); WHITE BLOOD COUNT 8.6 x10^3/uL (4.0-11.0)
[2019-09-09 04:58] LABS: CALCIUM 8.6 mg/dL (8.5-10.1); CREATININE 0.8 mg/dL (0.6-1.0); GFR 85.4; POTASSIUM 3.6 mmol/L (3.5-5.1)
[2019-09-09] MEDS: IV NORMAL SALINE 1000ML BAG 1,000 ML IV SCH (05:25)
[2019-09-09 07:00] VITALS: BP 92/58
--- NOTE | 2019-09-09 08:37 | PDOC ---
PROGRESS NOTES Chief Complaint Chief Complaint A/P: Left breast pain - admitted for pain control with IV medications Left breast cellulitis - given zosyn and ancef, already improving somewhat. Will apply heating back, IV toradol. Ok for ibuprofen. Will change to PO antibiotics doxycycline and augmentin as she wishes for discharge and she already has improvement. FEN - General diet PPX - ambulatory, low DVT risk FULL CODE Dispo - likely able to d/c later today on PO antibiotics and pain medications History of Present Illness History of Present Illness Ms Mazariegos is a 29-year-old female who presents with report of pain, swelling and redness to her left breast for the last 2 days. She indicates that pain and swelling have progressively gotten worse and currently she rates pain at an 8 out of 10. Afebrile. She denies any nausea or vomiting. Patient states that pain is worsened with palpation to the breast. No abscess on ultrasound. Did have leukocytosis. empirically given ancef and zosyn in ED. Due to pain complaints requiring IV medication she was admitted. Today she is still c/o 6/10 pain and now has some pain in her right breast. She just finished her menstrual period yesterday, has a child under 2. She did not breastfeed. No breast discharge. No recent sick contacts. no other health issues. On 09/08/19 in the afternoon she began vomiting, stayed overnight. Still with some left breast pain, worried about how long she will still have pain. She is somewhat anxious to go home. Vitals Vitals Vital Signs Date Time Temp Pulse Resp B/P (MAP) Pulse Ox O2 Delivery O2 Flow Rate FiO2 09/09/19 08:17 Room Air 09/09/19 07:00 98.2 65 20 92/58 (69) 95 98.2 Physical Exam General: Alert, Oriented X3, Cooperative, No acute distress Abdomen: Normal bowel sounds, Soft, No tenderness, No hepatosplenomegaly, No masses Extremities: No clubbing, No cyanosis, No edema, Normal pulses, No tenderness/swelling Skin: No rashes, No breakdown, No significant lesion Labs LABS Laboratory Tests Test 09/09/19 04:00 White Blood Count 8.6 x10^3/uL (4.0-11.0) Red Blood Count 3.97 x10^6/uL (3.50-5.40) Hemoglobin 12.0 g/dL (12.0-15.5) Hematocrit 35.5 % (36.0-47.0) Mean Corpuscular Volume 90 fL (79-100) Mean Corpuscular Hemoglobin 30 pg (25-35) Mean Corpuscular Hemoglobin Concent 34 g/dL (31-37) Red Cell Distribution Width 13.1 % (11.5-14.5) Platelet Count 227 x10^3/uL (140-400) Neutrophils (%) (Auto) 54 % (31-73) Lymphocytes (%) (Auto) 35 % (24-48) Monocytes (%) (Auto) 8 % (0-9) Eosinophils (%) (Auto) 2 % (0-3) Basophils (%) (Auto) 0 % (0-3) Neutrophils # (Auto) 4.7 x10^3/uL (1.8-7.7) Lymphocytes # (Auto) 3.0 x10^3/uL (1.0-4.8) Monocytes # (Auto) 0.7 x10^3/uL (0.0-1.1) Eosinophils # (Auto) 0.2 x10^3/uL (0.0-0.7) Basophils # (Auto) 0.0 x10^3/uL (0.0-0.2) Sodium Level 144 mmol/L (136-145) Potassium Level 3.6 mmol/L (3.5-5.1) Chloride Level 108 mmol/L (98-107) Carbon Dioxide Level 29 mmol/L (21-32) Anion Gap 7 (6-14) Blood Urea Nitrogen 6 mg/dL (7-20) Creatinine 0.8 mg/dL (0.6-1.0) Estimated GFR (Cockcroft-Gault) 85.4 Glucose Level 101 mg/dL (70-99) Calcium Level 8.6 mg/dL (8.5-10.1) Assessment and Plan Assessmemt and Plan Problems Medical Problems: (1) Cellulitis of left breast Status: Acute Comment Review of Relevant I have reviewed the following items chaparrita (where applicable) has been applied. Labs Laboratory Tests Test 09/07/19 22:20 09/07/19 23:22 09/07/19 23:25 09/09/19 04:00 White Blood Count 12.7 x10^3/uL (4.0-11.0) 8.6 x10^3/uL (4.0-11.0) Red Blood Count 4.70 x10^6/uL (3.50-5.40) 3.97 x10^6/uL (3.50-5.40) Hemoglobin 14.1 g/dL (12.0-15.5) 12.0 g/dL (12.0-15.5) Hematocrit 41.6 % (36.0-47.0) 35.5 % (36.0-47.0) Mean Corpuscular Volume 88 fL (79-100) 90 fL (79-100) Mean Corpuscular Hemoglobin 30 pg (25-35) 30 pg (25-35) Mean Corpuscular Hemoglobin Concent 34 g/dL (31-37) 34 g/dL (31-37) Red Cell Distribution Width 12.8 % (11.5-14.5) 13.1 % (11.5-14.5) Platelet Count 251 x10^3/uL (140-400) 227 x10^3/uL (140-400) Neutrophils (%) (Auto) 73 % (31-73) 54 % (31-73) Lymphocytes (%) (Auto) 19 % (24-48) 35 % (24-48) Monocytes (%) (Auto) 7 % (0-9) 8 % (0-9) Eosinophils (%) (Auto) 0 % (0-3) 2 % (0-3) Basophils (%) (Auto) 0 % (0-3) 0 % (0-3) Neutrophils # (Auto) 9.3 x10^3/uL (1.8-7.7) 4.7 x10^3/uL (1.8-7.7) Lymphocytes # (Auto) 2.4 x10^3/uL (1.0-4.8) 3.0 x10^3/uL (1.0-4.8) Monocytes # (Auto) 0.9 x10^3/uL (0.0-1.1) 0.7 x10^3/uL (0.0-1.1) Eosinophils # (Auto) 0.1 x10^3/uL (0.0-0.7) 0.2 x10^3/uL (0.0-0.7) Basophils # (Auto) 0.0 x10^3/uL (0.0-0.2) 0.0 x10^3/uL (0.0-0.2) Sodium Level 142 mmol/L (136-145) 144 mmol/L (136-145) Potassium Level 3.5 mmol/L (3.5-5.1) 3.6 mmol/L (3.5-5.1) Chloride Level 105 mmol/L (98-107) 108 mmol/L (98-107) Carbon Dioxide Level 26 mmol/L (21-32) 29 mmol/L (21-32) Anion Gap 11 (6-14) 7 (6-14) Blood Urea Nitrogen 7 mg/dL (7-20) 6 mg/dL (7-20) Creatinine 0.7 mg/dL (0.6-1.0) 0.8 mg/dL (0.6-1.0) Estimated GFR (Cockcroft-Gault) 99.6 85.4 BUN/Creatinine Ratio 10 (6-20) Glucose Level 91 mg/dL (70-99) 101 mg/dL (70-99) Calcium Level 9.5 mg/dL (8.5-10.1) 8.6 mg/dL (8.5-10.1) Total Bilirubin 0.7 mg/dL (0.2-1.0) Aspartate Amino Transf (AST/SGOT) 33 U/L (15-37) Alanine Aminotransferase (ALT/SGPT) 51 U/L (14-59) Alkaline Phosphatase 59 U/L (46-116) Total Protein 7.8 g/dL (6.4-8.2) Albumin 4.2 g/dL (3.4-5.0) Albumin/Globulin Ratio 1.2 (1.0-1.7) Urine Collection Type Unknown Urine Color Yellow Urine Clarity Clear Urine pH 6.5 Urine Specific [place] 1.020 Urine Protein Negative mg/dL (NEG-TRACE) Urine Glucose (UA) Negative mg/dL (NEG) Urine Ketones (Stick) 15 mg/dL (NEG) Urine Blood Moderate (NEG) Urine Nitrite Negative (NEG) Urine Bilirubin Negative (NEG) Urine Urobilinogen Dipstick 1.0 mg/dL (0.2 mg/dL) Urine Leukocyte Esterase Moderate (NEG) Urine RBC 3-5 /HPF (0-2) Urine WBC 11-20 /HPF (0-4) Urine Squamous Epithelial Cells Mod /LPF Urine Bacteria Moderate /HPF (0-FEW) Urine Mucus Mod /LPF Bedside Urine HCG, Qualitative Hcg negative (Negative) Laboratory Tests Test 09/09/19 04:00 White Blood Count 8.6 x10^3/uL (4.0-11.0) Red Blood Count 3.97 x10^6/uL (3.50-5.40) Hemoglobin 12.0 g/dL (12.0-15.5) Hematocrit 35.5 % (36.0-47.0) Mean Corpuscular Volume 90 fL (79-100) Mean Corpuscular Hemoglobin 30 pg (25-35) Mean Corpuscular Hemoglobin Concent 34 g/dL (31-37) Red Cell Distribution Width 13.1 % (11.5-14.5) Platelet Count 227 x10^3/uL (140-400) Neutrophils (%) (Auto) 54 % (31-73) Lymphocytes (%) (Auto) 35 % (24-48) Monocytes (%) (Auto) 8 % (0-9) Eosinophils (%) (Auto) 2 % (0-3) Basophils (%) (Auto) 0 % (0-3) Neutrophils # (Auto) 4.7 x10^3/uL (1.8-7.7) Lymphocytes # (Auto) 3.0 x10^3/uL (1.0-4.8) Monocytes # (Auto) 0.7 x10^3/uL (0.0-1.1) Eosinophils # (Auto) 0.2 x10^3/uL (0.0-0.7) Basophils # (Auto) 0.0 x10^3/uL (0.0-0.2) Sodium Level 144 mmol/L (136-145) Potassium Level 3.6 mmol/L (3.5-5.1) Chloride Level 108 mmol/L (98-107) Carbon Dioxide Level 29 mmol/L (21-32) Anion Gap 7 (6-14) Blood Urea Nitrogen 6 mg/dL (7-20) Creatinine 0.8 mg/dL (0.6-1.0) Estimated GFR (Cockcroft-Gault) 85.4 Glucose Level 101 mg/dL (70-99) Calcium Level 8.6 mg/dL (8.5-10.1) Microbiology 09/08/19 Blood Culture - Preliminary, Resulted NO GROWTH AFTER 1 DAY Medications Current Medications Fentanyl Citrate (Fentanyl 2ml Vial) 25 mcg PRN Q15MIN PRN IV PAIN GREATER THAN 3/10 Last administered on 09/07/19at 22:48; Start 09/07/19 at 21:45; Stop 09/08/19 at 10:10; Status DC Sodium Chloride 1,000 ml @ 1,000 mls/hr Q1H IV Last administered on 09/07/19at 22:46; Start 09/07/19 at 22:00; Stop 09/07/19 at 22:59; Status DC Ondansetron HCl (Zofran) 4 mg 1X ONCE IV Last administered on 09/07/19at 22:48; Start 09/07/19 at 22:00; Stop 09/07/19 at 22:01; Status DC Cefazolin Sodium/ Dextrose 50 ml @ 100 mls/hr 1X ONCE IV Last administered on 09/07/19at 22:47; Start 09/07/19 at 22:30; Stop 09/08/19 at 10:10; Status DC Hydromorphone HCl (Dilaudid) 0.5 mg 1X ONCE IV Last administered on 09/08/19at 00:14; Start 09/08/19 at 00:30; Stop 09/08/19 at 00:31; Status DC Ondansetron HCl (Zofran) 4 mg PRN Q8HRS PRN IV NAUSEA/VOMITING 1ST CHOICE; Start 09/08/19 at 00:15; Stop 09/09/19 at 00:14; Status DC Morphine Sulfate (Morphine Sulfate) 4 mg PRN Q2HR PRN IV SEVERE PAIN 7-10 Last administered on 09/08/19at 09:55; Start 09/08/19 at 00:15; Stop 09/08/19 at 10:10; Status DC Influenza Virus Vaccine Quadrival (Afluria Quad 2019-20 (3yr Up) Syringe) 0.5 ml ONCE ONCE VAX IM Last administered on 09/08/19at 08:22; Start 09/08/19 at 09:00; Stop 09/08/19 at 09:01; Status DC Sodium Chloride 1,000 ml @ 75 mls/hr [id number] IV Last administered on 09/08/19at 16:05; Start 09/08/19 at 02:45 Piperacillin Sod/ Tazobactam Sod (Zosyn Per Pharmacy) 1 each PRN DAILY PRN MC SEE COMMENTS; Start 09/08/19 at 02:45; Stop 09/08/19 at 10:10; Status DC Piperacillin Sod/ Tazobactam Sod 3.375 gm/Sodium Chloride 50 ml @ 100 mls/hr Q6HRS IV Last administered on 09/08/19at 06:18; Start 09/08/19 at 03:00; Stop 09/08/19 at 10:10; Status DC Ketorolac Tromethamine (Toradol 30mg Vial) 30 mg PRN Q6HRS PRN IVP INFLAMMATION Last administered on 09/08/19at 09:55; Start 09/08/19 at 08:45; Stop 09/13/19 at 08:44 Acetaminophen/ Hydrocodone Bitart (Lortab 5/325) 1 tab PRN Q6HRS PRN PO MODERATE PAIN Last administered on 09/08/19at 22:04; Start 09/08/19 at 08:45 Cephalexin HCl (Keflex) 500 mg BID PO Last administered on 09/08/19at 15:03; Start 09/08/19 at 10:15; Stop 09/08/19 at 15:30; Status DC Doxycycline Hyclate (Vibra-Tab) 100 mg BID PO Last administered on 09/08/19at 22:01; Start 09/08/19 at 10:15 Lactobacillus Rhamnosus (Culturelle) 1 cap BID PO Last administered on 09/08/19at 22:01; Start 09/08/19 at 21:00 Piperacillin Sod/ Tazobactam Sod 3.375 gm/Sodium Chloride 50 ml @ 100 mls/hr Q6HRS IV Last administered on 09/09/19at 05:57; Start 09/08/19 at 16:00 Zolpidem Tartrate (Ambien) 5 mg PRN QHS PRN PO INSOMNIA, MAY REPEAT IN 1HR; Start 09/08/19 at 15:45 Lorazepam (Ativan) 0.5 mg PRN Q8HRS PRN PO ANXIETY / AGITATION; Start 09/08/19 at 15:45 Morphine Sulfate (Morphine Sulfate) 4 mg PRN Q3HRS PRN IV PAIN Last administered on 09/08/19at 15:57; Start 09/08/19 at 15:45 Prochlorperazine Edisylate (Compazine) 10 mg PRN Q6HRS PRN IM NAUSEA/VOMITING; Start 09/08/19 at 18:00 Active Scripts Active Hydrocodone-Apap 5-325 (Hydrocodone Bit/Acetaminophen) 1 Tab Tablet 1 Tab PO PRN Q6HRS PRN 6 Days Doxycycline Hyclate 100 Mg Tablet 100 Mg PO BID 10 Days Cephalexin 250 Mg Capsule 500 Mg PO BID 10 Days Can give 500mg dose #20 Colace (Docusate Sodium) 100 Mg Capsule 1 Cap PO BID Ibuprofen 800 Mg Tablet 800 Mg PO PRN Q6HRS PRN Vitals/I & O Vital Sign - Last 24 Hours 09/08/19 09/08/19 09/08/19 09/08/19 09:55 10:25 11:00 15:00 Temp 98.2 97.8 98.2 97.8 Pulse 77 88 Resp 16 16 B/P (MAP) 94/58 (70) 98/45 (62) Pulse Ox 96 97 O2 Delivery Room Air Room Air Room Air Room Air 09/08/19 09/08/19 09/08/19 09/08/19 15:03 15:57 16:03 16:27 O2 Delivery Room Air Room Air Room Air Room Air 09/08/19 09/08/19 09/08/19 09/08/19 19:20 19:25 19:45 22:04 Temp 98.0 98.0 98.0 98.0 Pulse 81 81 Resp 18 18 B/P (MAP) 96/38 (57) 96/38 (57) Pulse Ox 99 99 O2 Delivery Room Air Room Air Room Air Room Air 09/08/19 09/08/19 09/09/19 09/09/19 23:04 23:10 03:06 07:00 Temp 98.1 98.2 98.2 98.1 98.2 98.2 Pulse 82 82 65 Resp 18 18 20 B/P (MAP) 105/67 (80) 108/66 (80) 92/58 (69) Pulse Ox 98 99 95 O2 Delivery Room Air Room Air Room Air Room Air 09/09/19 08:17 O2 Delivery Room Air Intake and Output 09/08/19 09/08/19 09/09/19 14:59 22:59 06:59 Intake Total 360 ml Balance 360 ml JORDAN SIDDIQUI MD Sep 09, 2019 08:37
[2019-09-09] MEDS: LACTOBACILLUS RHAMNOSUS GG 1 CAPSULE. PO SCH (09:53)
[2019-09-09] MEDS: DOXYCYCLINE HYCLATE 100 MG TABLET PO SCH (09:53)
[2019-09-09 11:00] VITALS: BP 100/60
--- NOTE | 2019-09-09 13:13 | NUR ---
Discharge instructions and belongings reviewed with patient with Stone FERGUSON translating, patient verbalized understanding. Patient escorted out of hospital via ambulation by Stone FERGUSON accompanied by her friend.
--- NOTE | 2019-09-09 13:28 | PDOC3 ---
Discharge Summary Visit Information Date of Admission: Sep 08, 2019 Date of Discharge: Sep 09, 2019 Admitting Diagnosis: Left mastitis Final Diagnosis Problems Medical Problems: (1) Cellulitis of left breast Status: Acute Brief Hospital Course Allergies Allergies Coded Allergies Type Severity Reaction Last Updated Verified No Known Drug Allergies 10/04/14 No Vital Signs Vital Signs Date Time Temp Pulse Resp B/P (MAP) Pulse Ox O2 Delivery O2 Flow Rate FiO2 09/09/19 11:00 98.0 62 20 100/60 (73) 96 Room Air 98.0 Lab Results Laboratory Tests Test 09/07/19 22:20 09/07/19 23:22 09/07/19 23:25 09/09/19 04:00 White Blood Count 12.7 x10^3/uL (4.0-11.0) 8.6 x10^3/uL (4.0-11.0) Red Blood Count 4.70 x10^6/uL (3.50-5.40) 3.97 x10^6/uL (3.50-5.40) Hemoglobin 14.1 g/dL (12.0-15.5) 12.0 g/dL (12.0-15.5) Hematocrit 41.6 % (36.0-47.0) 35.5 % (36.0-47.0) Mean Corpuscular Volume 88 fL (79-100) 90 fL (79-100) Mean Corpuscular Hemoglobin 30 pg (25-35) 30 pg (25-35) Mean Corpuscular Hemoglobin Concent 34 g/dL (31-37) 34 g/dL (31-37) Red Cell Distribution Width 12.8 % (11.5-14.5) 13.1 % (11.5-14.5) Platelet Count 251 x10^3/uL (140-400) 227 x10^3/uL (140-400) Neutrophils (%) (Auto) 73 % (31-73) 54 % (31-73) Lymphocytes (%) (Auto) 19 % (24-48) 35 % (24-48) Monocytes (%) (Auto) 7 % (0-9) 8 % (0-9) Eosinophils (%) (Auto) 0 % (0-3) 2 % (0-3) Basophils (%) (Auto) 0 % (0-3) 0 % (0-3) Neutrophils # (Auto) 9.3 x10^3/uL (1.8-7.7) 4.7 x10^3/uL (1.8-7.7) Lymphocytes # (Auto) 2.4 x10^3/uL (1.0-4.8) 3.0 x10^3/uL (1.0-4.8) Monocytes # (Auto) 0.9 x10^3/uL (0.0-1.1) 0.7 x10^3/uL (0.0-1.1) Eosinophils # (Auto) 0.1 x10^3/uL (0.0-0.7) 0.2 x10^3/uL (0.0-0.7) Basophils # (Auto) 0.0 x10^3/uL (0.0-0.2) 0.0 x10^3/uL (0.0-0.2) Sodium Level 142 mmol/L (136-145) 144 mmol/L (136-145) Potassium Level 3.5 mmol/L (3.5-5.1) 3.6 mmol/L (3.5-5.1) Chloride Level 105 mmol/L (98-107) 108 mmol/L (98-107) Carbon Dioxide Level 26 mmol/L (21-32) 29 mmol/L (21-32) Anion Gap 11 (6-14) 7 (6-14) Blood Urea Nitrogen 7 mg/dL (7-20) 6 mg/dL (7-20) Creatinine 0.7 mg/dL (0.6-1.0) 0.8 mg/dL (0.6-1.0) Estimated GFR (Cockcroft-Gault) 99.6 85.4 BUN/Creatinine Ratio 10 (6-20) Glucose Level 91 mg/dL (70-99) 101 mg/dL (70-99) Calcium Level 9.5 mg/dL (8.5-10.1) 8.6 mg/dL (8.5-10.1) Total Bilirubin 0.7 mg/dL (0.2-1.0) Aspartate Amino Transf (AST/SGOT) 33 U/L (15-37) Alanine Aminotransferase (ALT/SGPT) 51 U/L (14-59) Alkaline Phosphatase 59 U/L (46-116) Total Protein 7.8 g/dL (6.4-8.2) Albumin 4.2 g/dL (3.4-5.0) Albumin/Globulin Ratio 1.2 (1.0-1.7) Urine Collection Type Unknown Urine Color Yellow Urine Clarity Clear Urine pH 6.5 Urine Specific [place] 1.020 Urine Protein Negative mg/dL (NEG-TRACE) Urine Glucose (UA) Negative mg/dL (NEG) Urine Ketones (Stick) 15 mg/dL (NEG) Urine Blood Moderate (NEG) Urine Nitrite Negative (NEG) Urine Bilirubin Negative (NEG) Urine Urobilinogen Dipstick 1.0 mg/dL (0.2 mg/dL) Urine Leukocyte Esterase Moderate (NEG) Urine RBC 3-5 /HPF (0-2) Urine WBC 11-20 /HPF (0-4) Urine Squamous Epithelial Cells Mod /LPF Urine Bacteria Moderate /HPF (0-FEW) Urine Mucus Mod /LPF Bedside Urine HCG, Qualitative Hcg negative (Negative) Laboratory Tests Test 09/09/19 04:00 White Blood Count 8.6 x10^3/uL (4.0-11.0) Red Blood Count 3.97 x10^6/uL (3.50-5.40) Hemoglobin 12.0 g/dL (12.0-15.5) Hematocrit 35.5 % (36.0-47.0) Mean Corpuscular Volume 90 fL (79-100) Mean Corpuscular Hemoglobin 30 pg (25-35) Mean Corpuscular Hemoglobin Concent 34 g/dL (31-37) Red Cell Distribution Width 13.1 % (11.5-14.5) Platelet Count 227 x10^3/uL (140-400) Neutrophils (%) (Auto) 54 % (31-73) Lymphocytes (%) (Auto) 35 % (24-48) Monocytes (%) (Auto) 8 % (0-9) Eosinophils (%) (Auto) 2 % (0-3) Basophils (%) (Auto) 0 % (0-3) Neutrophils # (Auto) 4.7 x10^3/uL (1.8-7.7) Lymphocytes # (Auto) 3.0 x10^3/uL (1.0-4.8) Monocytes # (Auto) 0.7 x10^3/uL (0.0-1.1) Eosinophils # (Auto) 0.2 x10^3/uL (0.0-0.7) Basophils # (Auto) 0.0 x10^3/uL (0.0-0.2) Sodium Level 144 mmol/L (136-145) Potassium Level 3.6 mmol/L (3.5-5.1) Chloride Level 108 mmol/L (98-107) Carbon Dioxide Level 29 mmol/L (21-32) Anion Gap 7 (6-14) Blood Urea Nitrogen 6 mg/dL (7-20) Creatinine 0.8 mg/dL (0.6-1.0) Estimated GFR (Cockcroft-Gault) 85.4 Glucose Level 101 mg/dL (70-99) Calcium Level 8.6 mg/dL (8.5-10.1) Brief Hospital Course Ms Mazariegos is a 29-year-old female who presents with report of pain, swelling and redness to her left breast for the last 2 days. She indicates that pain and swelling have progressively gotten worse and currently she rates pain at an 8 out of 10. Afebrile. She denies any nausea or vomiting. Patient states that pain is worsened with palpation to the breast. No abscess on ultrasound. Did have leukocytosis. empirically given ancef and zosyn in ED. Due to pain complaints requiring IV medication she was admitted. Today she is still c/o 6/10 pain and now has some pain in her right breast. She just finished her menstrual period yesterday, has a child under 2. She did not breastfeed. No breast discharge. No recent sick contacts. no other health issues. On 09/08/19 in the afternoon she began vomiting, stayed overnight. Still with some left breast pain, worried about how long she will still have pain. She is somewhat anxious to go home. A/P: Left breast pain - admitted for pain control with IV medications Left breast cellulitis - given zosyn and ancef, already improving somewhat. Will apply heating back, IV toradol. Ok for ibuprofen. Will change to PO antibiotics doxycycline and augmentin as she wishes for discharge and she already has improvement. Greater than 30 minutes spent on d/c Discharge Information Condition at Discharge: Improved Follow Up: Weeks (1) Disposition/Orders: D/C to Home Scheduled Cephalexin (Cephalexin) 250 Mg Capsule, 500 MG PO BID for cellulitis for 10 Days, #40 Can give 500mg dose #20 Prescribed by: JORDAN SIDDIQUI MD on 09/08/19 1021 Docusate Sodium (Colace) 100 Mg Capsule, 1 CAP PO BID, #60 Ref 2 Prescribed by: ROBERTO TOPETE on 04/16/17 0840 Doxycycline Hyclate (Doxycycline Hyclate) 100 Mg Tablet, 100 MG PO BID for Cellulitis for 10 Days, #20 Prescribed by: JORDAN SIDDIQUI MD on 09/08/19 1021 Scheduled PRN Hydrocodone Bit/Acetaminophen (Hydrocodone-Apap 5-325 ) 1 Tab Tablet, 1 TAB PO PRN Q6HRS PRN for MODERATE PAIN for 6 Days, #15 Prescribed by: JORDAN SIDDIQUI MD on 09/08/19 1021 Ibuprofen (Ibuprofen) 800 Mg Tablet, 800 MG PO PRN Q6HRS PRN for INFLAMMATION, #30 Ref 1 Prescribed by: ROBERTO TOPETE on 04/16/17 0840 Discontinued Medications Oxycodone/Apap 5-325 (Percocet 5-325 Mg Tablet ) 1 Each Tablet, 1-2 TAB PO Q4- 6HRS, #40 Ref 0 Prescribed by: ROBERTO TOPETE on 04/16/17839 JORDAN SIDDIQUI MD Sep 09, 2019 13:28
== END 2019-09-09 13:17 | disposition home or self-care (01) | DRG 601 ==
LOC: ER 20:57 → 4 NORTH 09-08 00:05
PROVIDERS: ADMIT Internal Medicine; ATTEND Internal Medicine
DX: N61.0 Mastitis without abscess (principal); Z82.49 Family history of ischemic heart disease and other diseases of the circulatory system; Z90.49 Acquired absence of other specified parts of digestive tract; Z79.899 Other long term (current) drug therapy
CPT/HCPCS: 36415; 76641; 80048; 80053; 81001; 81025; 85025; 87040; 87086; 90471; 90686; J0696; J1170; J1885; J2270; J2405; J2543; J3010; J7030; G0378

== ENCOUNTER 2020-02-11 09:18 | Emergency (ER) | payer SELFPAY ==
[~2020-02-11] VITALS: Ht 165.1 cm; Wt 72.7 kg
[~2020-02-11 09:18] MED LIST changes: +CEPH250C PO; +DOXY100T PO; +HYDR-2761 PO
[2020-02-11] MEDS ORDERED: ACETAMINOPHEN 500 MG TABLET PO ONE (10:00)
[2020-02-11] MEDS ORDERED: ONDANSETRON PF 4 MG/2 ML VIAL. IVP ONE (10:00)
--- NOTE | 2020-02-11 10:03 | PHYS DOC ---
Past Medical History Past Medical History: No Pertinent History Past Surgical History: Appendectomy Smoking Status: Never Smoker Alcohol Use: Occasionally Drug Use: None Adult General Chief Complaint Chief Complaint: FEVER HPI HPI Patient is a 29 year old female who presents with fever, sinus headache, nausea, dry cough since Saturday. She denies travel or being around anybody also has known coronavirus or that has been sick. Patient is febrile in the ED of 100.6. Patient states she has been taking the medication but the bioinformatics specialist could not interpret what medication because they did not understand. Patient is Turkmen-speaking only. Patient denies chest pain, shortness of breath, abdo sydni pain, vomiting, diarrhea, dizziness, syncope, visual changes, numbness or tingling. Review of Systems Review of Systems Constitutional: fever or chills [] HENT: Denies nasal congestion. + sore throat [] Respiratory: cough or denies shortness of breath [] GI: Denies abdominal pain. + nausea, denies vomiting, bloody stools or diarrhea [] Neurologic: headache, denies focal weakness or sensory changes [] All other systems were reviewed and found to be within normal limits, except as documented in this note. Current Medications Current Medications Current Medications Medications (Trade) Dose Ordered Sig/Seven Start Time Stop Time Status Last Admin Dose Admin Acetaminophen (Tylenol) 1,000 mg 1X ONCE 02/11/20 10:00 02/11/20 10:01 DC 02/11/20 10:30 1,000 MG Ketorolac Tromethamine (Toradol 30mg Vial) 30 mg 1X ONCE 02/11/20 11:00 02/11/20 11:01 DC Ondansetron HCl (Zofran) 4 mg 1X ONCE 02/11/20 10:00 02/11/20 10:01 DC 02/11/20 10:30 4 MG Piperacillin Sod/ Tazobactam Sod 3.375 gm/Sodium Chloride 50 ml @ 100 mls/hr 1X ONCE 02/11/20 10:45 02/11/20 11:14 DC Sodium Chloride 1,000 ml @ 1,000 mls/hr 1X ONCE 02/11/20 11:00 02/11/20 11:59 Allergies Allergies Allergies Coded Allergies Type Severity Reaction Last Updated Verified No Known Drug Allergies 10/04/14 No Physical Exam Physical Exam Constitutional: Well developed, well nourished, no acute distress, non-toxic appearance. [] HENT: Normocephalic, atraumatic, bilateral external ears normal, oropharynx moist, no oral exudates, nose normal. [] Eyes: PERRLA, EOMI, conjunctiva normal, no discharge. [] Neck: Normal range of motion, no tenderness, supple, no stridor. [] Cardiovascular:Heart rate regular rhythm, no murmur [] Lungs & Thorax: Bilateral breath sounds clear to auscultation [] Abdomen: Bowel sounds normal, soft, no tenderness, no masses, no pulsatile masses. [] Skin: Warm, dry, no erythema, no rash. [] Back: No tenderness, no CVA tenderness. [] Extremities: No tenderness, no cyanosis, no clubbing, ROM intact, no edema. [] Neurologic: Alert and oriented X 3, normal motor function, normal sensory function, no focal deficits noted. [] Psychologic: Affect normal, judgement normal, mood normal. [] Current Patient Data Vital Signs Vital Signs Date Time Temp Pulse Resp B/P (MAP) Pulse Ox O2 Delivery O2 Flow Rate FiO2 02/11/20 09:18 100.6 115 18 116/79 (91) 98 Room Air 100.6 Lab Values Laboratory Tests Test 02/11/20 09:30 02/11/20 09:44 02/11/20 09:50 Urine Collection Type Unknown Urine Color Yellow Urine Clarity Clear Urine pH 7.5 (<5.0-8.0) Urine Specific [place] 1.020 (1.000-1.030) Urine Protein Negative mg/dL (NEG-TRACE) Urine Glucose (UA) Negative mg/dL (NEG) Urine Ketones (Stick) Negative mg/dL (NEG) Urine Blood Negative (NEG) Urine Nitrite Negative (NEG) Urine Bilirubin Negative (NEG) Urine Urobilinogen Dipstick 0.2 mg/dL (0.2 mg/dL) Urine Leukocyte Esterase Negative (NEG) Urine RBC Occ /HPF (0-2) Urine WBC Occ /HPF (0-4) Urine Squamous Epithelial Cells Many /LPF Urine Bacteria Moderate /HPF (0-FEW) Urine Mucus Slight /LPF White Blood Count 5.0 x10^3/uL (4.0-11.0) Red Blood Count 5.01 x10^6/uL (3.50-5.40) Hemoglobin 14.9 g/dL (12.0-15.5) Hematocrit 44.6 % (36.0-47.0) Mean Corpuscular Volume 89 fL (79-100) Mean Corpuscular Hemoglobin 30 pg (25-35) Mean Corpuscular Hemoglobin Concent 33 g/dL (31-37) Red Cell Distribution Width 13.0 % (11.5-14.5) Platelet Count 151 x10^3/uL (140-400) Neutrophils (%) (Auto) 68 % (31-73) Lymphocytes (%) (Auto) 23 % (24-48) L Monocytes (%) (Auto) 8 % (0-9) Eosinophils (%) (Auto) 0 % (0-3) Basophils (%) (Auto) 1 % (0-3) Neutrophils # (Auto) 3.4 x10^3/uL (1.8-7.7) Lymphocytes # (Auto) 1.2 x10^3/uL (1.0-4.8) Monocytes # (Auto) 0.4 x10^3/uL (0.0-1.1) Eosinophils # (Auto) 0.0 x10^3/uL (0.0-0.7) Basophils # (Auto) 0.0 x10^3/uL (0.0-0.2) Sodium Level 144 mmol/L (136-145) Potassium Level 3.6 mmol/L (3.5-5.1) Chloride Level 106 mmol/L (98-107) Carbon Dioxide Level 28 mmol/L (21-32) Anion Gap 10 (6-14) Blood Urea Nitrogen 6 mg/dL (7-20) L Creatinine 0.8 mg/dL (0.6-1.0) Estimated GFR (Cockcroft-Gault) 85.4 BUN/Creatinine Ratio 8 (6-20) Glucose Level 90 mg/dL (70-99) Calcium Level 8.2 mg/dL (8.5-10.1) L Total Bilirubin 0.3 mg/dL (0.2-1.0) Aspartate Amino Transferase (AST) 23 U/L (15-37) Alanine Aminotransferase (ALT) 43 U/L (14-59) Alkaline Phosphatase 53 U/L (46-116) Total Protein 6.5 g/dL (6.4-8.2) Albumin 3.9 g/dL (3.4-5.0) Albumin/Globulin Ratio 1.5 (1.0-1.7) Influenza Type A Antigen Negative (NEGATIVE) Influenza Type B Antigen Negative (NEGATIVE) Laboratory Tests 02/11/20 09:44 Laboratory Tests 02/11/20 09:44 EKG EKG [] Radiology/Procedures Radiology/Procedures [] Impressions: [facility] [address] [place] [address] IMAGING REPORT Signed PATIENT: ANISHA MANUELNACCOUNT: [id number] : 1990 LOCATION: ER AGE: 29 SEX: F EXAM STATUS: REG ER ORD. PHYSICIAN: FARRAH ROSADO APRN REASON: cough PROCEDURE: PORTABLE CHEST 1V AP chest. HISTORY: Cough AP view was taken of the chest. Patient's taken a poor inspiration. There is mild hazy infiltrates at the right costophrenic angle. PA and lateral views with better inspiration would be of benefit. There is no effusion. The heart is normal in size. IMPRESSION: 1. Mild infiltrate at the right costophrenic angle. Electronically signed by: Connor Meza MD (02/11/2020 10:34 AM) [id number] DICTATED and SIGNED BY: CONNOR MEZA MD DATE: 02/11/20 1034 Course & Med Decision Making Course & Med Decision Making Pertinent Labs and Imaging studies reviewed. (See chart for details) Speaks in full clear sentences. Alert and oriented. Skin pink warm and dry. Lungs are clear to auscultation all lobes. Abdomen soft and nontender. Throat is reddened but there is no swelling or exudates. PERRLA. Bilateral tympanic swipe. Patient is slightly tachy at 108. Patient denies any medical history except for having a . She states she takes no medications daily. With the patients symptoms she could likely have Covid-19 and chest xray. I have spoken to Dr Cardoza and with the current testing only if being admitted at this time and patient is stable, the patient will not be tested and sent home to self quarantine for the next 2 weeks. She will also be given the number to the state. She also be educated she starts having respiratory distress and high fever she needs to return to the emergency room. I will be sending her home with Antibiotics and nausea medications. After further discussion with with Dr Cardoza and nursing staff the patient will be tested for Covid-19. [] Dragon Disclaimer Dragon Disclaimer This electronic medical record was generated, in whole or in part, using a voice recognition dictation system. Departure Departure Impression: Primary Impression: Fever Additional Impression: Pneumonia Disposition: HOME, SELF-CARE Condition: STABLE Referrals: NO PCP (PCP) Patient Instructions: Fever, Adult, Pneumonia, Adult Additional Instructions: QUARANTINE YOURSELF FOR THE NEXT 2 WEEKS. STAY AWAY FROM SMALL CHILDREN, ELDERLY AND THOSE IMMUNOCOMPROMISED. TAKE TYLENOL FOR YOUR FEVER. TAKE MEDICATIONS WITH FOOD. Scripts Acetaminophen (ACETAMINOPHEN) 500 Mg Tablet 2 TAB PO PRN Q8HRS PRN for pain or fever for 10 Days, #60 TAB 0 Refills Prov: FARRAH ROSADO APRN 02/11/20 Azithromycin (AZITHROMYCIN TABLET) 250 Mg Tablet 1 PKG PO UD for 5 Days, #6 TAB 0 Refills 2 the first day followed by 1 for days 2-5 Prov: FARRAH ROSADO APRN 02/11/20 Ondansetron (ONDANSETRON ODT) 4 Mg Tab.rapdis 1 TAB PO PRN Q6-8HRS, #30 TAB Prov: FARRAH ROSADO APRN 02/11/20 Problem Qualifiers Primary Impression: Fever Fever type: unspecified Qualified Codes: R50.9 - Fever, unspecified Additional Impression: Pneumonia Pneumonia type: due to unspecified organism Laterality: right Lung location: middle lobe of lung Qualified Codes: J18.9 - Pneumonia, unspecified organism FARRAH ROSADO APRN Feb 11, 2020 10:03
[2020-02-11 10:04] LABS: BASO % 1 % (0-3); EOS % 0 % (0-3); HEMATOCRIT 44.6 % (36.0-47.0); HEMOGLOBIN 14.9 g/dL (12.0-15.5); LYMPH # 1.2 x10^3/uL (1.0-4.8); LYMPH % 23 % (24-48); MEAN CORPUSCULAR HEMOGLOBIN 30 pg (25-35); MEAN CORPUSCULAR HGB CONC 33 g/dL (31-37); MEAN CORPUSCULAR VOLUME 89 fL (79-100); MONO # 0.4 x10^3/uL (0.0-1.1); MONO % 8 % (0-9); NEUT # 3.4 x10^3/uL (1.8-7.7); NEUT % 68 % (31-73); PLATELET COUNT 151 x10^3/uL (140-400); RED BLOOD COUNT 5.01 x10^6/uL (3.50-5.40)
[2020-02-11 10:06] LABS: BILIRUBIN,URINE NEGATIVE (NEG); CLARITY,URINE CLEAR; COLOR,URINE YELLOW; NITRITE,URINE NEGATIVE (NEG); PH,URINE 7.5 (<5.0-8.0); PROTEIN,URINE NEGATIVE (NEG-TRACE); UROBILINOGEN,URINE 0.2 mg/dL (0.2 mg/dL)
[2020-02-11 10:16] LABS: CALCIUM 8.2 mg/dL (8.5-10.1); CREATININE 0.8 mg/dL (0.6-1.0); GFR 85.4; POTASSIUM 3.6 mmol/L (3.5-5.1)
[2020-02-11 10:20] LABS: INFLUENZA A PATIENT NEGATIVE (NEGATIVE); INFLUENZA B PATIENT NEGATIVE (NEGATIVE)
[2020-02-11 10:21] LABS: ALBUMIN 3.9 g/dL (3.4-5.0); ALBUMIN/GLOBULIN RATIO 1.5 (1.0-1.7); TOTAL BILIRUBIN 0.3 mg/dL (0.2-1.0); TOTAL PROTEIN 6.5 g/dL (6.4-8.2)
[2020-02-11 10:35] LABS: BACTERIA,URINE MODERATE /HPF (0-FEW); RBC,URINE OCC /HPF (0-2); SQUAMOUS EPITHELIAL CELL,UR MANY /LPF; WBC,URINE OCC /HPF (0-4)
--- NOTE | 2020-02-11 10:37 | RAD ---
AP chest. HISTORY: Cough AP view was taken of the chest. Patient's taken a poor inspiration. There is mild hazy infiltrates at the right costophrenic angle. PA and lateral views with better inspiration would be of benefit. There is no effusion. The heart is normal in size. IMPRESSION: 1. Mild infiltrate at the right costophrenic angle. Electronically signed by: Connor Meaz MD (02/11/2020 10:34 AM) [id number]
[2020-02-11] MEDS ORDERED: PIPERACILLIN/TAZOBACTAM 3.375 GM in IV NORMAL SALINE 50ML 50 ML IV ONE (10:45)
[2020-02-11] MEDS ORDERED: ONDA4TAB12 PO (10:45)
[2020-02-11] MEDS ORDERED: AZIT250T6 PO (10:55)
[2020-02-11] MEDS ORDERED: ACET500T68 PO (10:57)
[2020-02-11] MEDS ORDERED: KETOROLAC 30 MG/ML VIAL. IVP ONE (11:00)
[2020-02-11] MEDS ORDERED: IV NORMAL SALINE 1000ML BAG 1,000 ML IV ONE (11:00)
[2020-02-11 12:16] VITALS: BP 99/66
== END 2020-02-11 12:47 | disposition home or self-care (01) ==
LOC: ER 09:18
DX: J18.9 Pneumonia, unspecified organism (principal); R50.9 Fever, unspecified; R05 Cough; R51 Headache; Z90.89 Acquired absence of other organs
CPT/HCPCS: 36415; 71045; 80053; 81001; 85025; 87086; 87635; 87804; 96365; 96375; 99284; J1885; J2405; J2543; J7030; U0002

== ENCOUNTER → 2020-11-08 | Outpatient (CLI) | payer SELFPAY ==
[~2020-11-08] MED LIST changes: +ACET500T68 PO; +AZIT250T6 PO; +ONDA4TAB12 PO
== END ==
LOC: LAB 14:34
PROVIDERS: ATTEND Obstetrics & Gynecology
DX: Z01.812 Encounter for preprocedural laboratory examination (principal); Z20.828 Contact with and (suspected) exposure to other viral communicable diseases
CPT/HCPCS: U0003